=== PATIENT | female | born 1955 | race Caucasian/White ===

== ENCOUNTER 2020-01-25 15:05 | Outpatient (CLI) | payer MEDICARE, MEDICAID, SELFPAY ==
--- NOTE | ~2020-01-25 | XR_ITS ---
EXAMINATION: XR lumbar spine 2-3V EXAM DATE: 01/25/2020 15:40 INDICATION: Right-sided low back pain. TECHNIQUE: Lumber spine frontal, lateral, lateral L5-S1 projections for interpretation. There is no prior study for comparison. FINDINGS: There is moderate loss of the L5-S1 disc height, likely superimposed on congenitally narro wed disc. Otherwise mild lumbar disc disease. There is mild to moderate lumbar facet arthropathy. Minimal lumbar levocurvature. There are cholecystectomy clips. Sacrum, sacroiliac joints, sacral arcu ate lines are intact. There is mild abdominal aortic arteriosclerotic disease. IMPRESSION: 1. Mild to moderate lumbar spondylosis. Reviewed, dictated and finalized at location A.
--- NOTE | ~2020-01-25 | XR_ITS ---
EXAMINATION: XR_CERV2-3V_CR EXAM DATE: 01/25/2020 15:40 INDICATION: Chronic generalized neck pain. TECHNIQUE: Cervical spine frontal, lateral, submental vertex, and open-mouth odontoid projections. There are no prior studies for comparison. FINDINGS: There is moderate disc disease at C5-6 and 6-7, mild to moderate at C7-T1. At least modera te uncovertebral joint arthropathy at C5-6 and 6-7. There is moderate cervical facet arthropathy with left-sided predominant suspected. The odontoid process is intact. The lateral masses of C1 line up with C2. Prevertebral soft tissue and pre-dens space are within normal limits. Apices are clear. IMPRESSION: Moderate lower cervical spondylosis. Reviewed, dictated and finalized at location A.
== END 2020-01-25 15:06 | disposition home or self-care (01) ==
LOC: CHSIMG 15:09
PROVIDERS: PCP Internal Medicine; Visit Provider Internal Medicine
DX: M54.9 Dorsalgia, unspecified (principal); M54.2 Cervicalgia; M47.812 Spondylosis without myelopathy or radiculopathy, cervical region; M47.816 Spondylosis without myelopathy or radiculopathy, lumbar region
CPT/HCPCS: 72040; 72100

== ENCOUNTER 2020-05-05 08:28 | Outpatient (CLI) | payer MEDICARE, MEDICAID, SELFPAY ==
--- NOTE | ~2020-05-05 | DEXA_ITS ---
BMD(1) Young-Adult(2,7) Age-Matched(3) Region (g/cm2) T-score Z-score WHO Classification Neck Left 0.944 -0.7 0.4 Normal Right 0.928 -0.8 0.3 Normal Mean 0.936 -0.7 0.3 Normal Difference 0.016 0.1 0.1 - Total Left 1.082 0.6 1.3 Normal Right 1.037 0.2 1.0 Normal Mean 1.060 0.4 1.2 Normal Difference 0.045 0.4 0.4 - Hip [place] Length Comparison (mm) (Right = 98.3 mm) (Mean = 103.7 mm) (Left = 99.5 mm) Trend: Total Mean Change vs Change vs Measured Age BMD(1) Baseline Previous Date (years) (g/cm2) (%) (%) 05/05/2020 [age] 1.060 baseline - 1 - Statistically 68% of repeat scans fall within 1SD (+- 0.010 g/cm2 for DualFemur Total) 2 - [place] (Combined NHANES (ages 20-30) / Urlist (ages 20-40)) Femur Reference Population (v112) 3 - Matched for Age, Weight (females 25-100 kg), Ethnic 7 - DualFemur Total T-score difference is 0.4. Asymmetry is None. 11 - World Health Organization - Definition of Osteoporosis and Osteopenia for Women: Normal = T-score at or above -1.0 SD; Osteopenia = T-score between -1.0 and -2.5 SD; Osteoporosis = T-score at or below -2.5 SD; (WHO definitions only apply when a young healthy Women reference database is used to determine T-scores.) Printed: 05/05/2020 9:12:35 AM (13.60); Filename: [id number]; Right Femur; 22.5:%Fat=38.4%; Neck Angle (deg)= 69; Scan Mode: Standard 37.0 uGy; Left Femur; 21.6:%Fat=39.2%; Neck Angle (deg)= 69; Scan Mode: Standard 37.0 uGy [employer] [id number] Dear Sonam Daniels, Your patient Elsa Duong completed a BMD test on 05/05/2020 using the [employer] DXA System (analysis version: 13.60) manufactured by [employer]. The following summarizes the results of our evaluation. PATIENT BIOGRAPHICAL: Name: Elsa Duong Date: 1955 Height: 62.0 in. Gender: Female Exam Date: 05/05/2020 Weight: 194.0 lbs. Indications: Back Pain, Family Hist.(Parent hip fracture), Hip Pain, Hysterectomy, Ovarectomy (Unilat), Family Hist. (Parent hip fracture) Fractures: Treatments: Calcium, Multivitamin, Vitamin D ASSESSMENT: The BMD measured at Femur Neck Right is 0.928 g/cm2 with a T-score of -0.8. Bone density is up to 10% below young normal. This patient is considered normal according to World Health Organization (WHO) criteria. Fracture risk is low. Site Region Measured Measured WHO Young Adult Young Adult BMD Date Age Classification T-score AM Z-score DualFemur Neck Left 05/05/2020 66.9 Normal -0.7 0.4 0.944 g/cm2 DualFemur Neck Right 05/05/2020 66.9 Normal -0.8 0.3 0.928 g/cm2 DualFemur Total Mean 05/05/2020 66.9 Normal 0.4 1.2 1.060 g/cm2 World Health Organization (WHO) criteria for post-menopausal, Women: Normal: T-score at or above -1 SD Osteopenia: T-score between -1 and -2.5 SD Osteoporosis: T-score at or below -2.5 SD RECOMMENDATIONS: All patients should ensure an adequate intake of dietary calcium (1200 mg/d)
--- NOTE | ~2020-05-05 | US_ITS ---
EXAMINATION: US thyroid EXAM DATE: 05/05/2020 09:21 INDICATION: Goiter. TECHNIQUE: Multiple grayscale and Doppler images of the thyroid were obtained (by a technologist who performed the scan) and subsequently reviewed. Individual nodules and recommendations may be reporte d in accordance with TI-RADS system as designated by the 2017 ACR White Paper TI-RADS committee. The re is no prior study for comparison. FINDINGS: Right thyroid lobe measures 3.9 x 1.4 x 1.1 cm, the left measuring 3.6 x 1.4 x 1.1 cm. There is homog eneous thyroid echogenicity with several subcentimeter thyroid nodules, largest in the right thyroid lobe measuring 8 x 7 x 5 millimeters, solid (2 points), hyperechoic (1 point), wider than tall, gabriele h margin, without echogenic foci, category TR3 for this nodule. IMPRESSION: Small thyroid nodules not likely clinically significant. Return to clinical follow-up. Reviewed, dictated and finalized at location A.
[2020-05-05 09:21] LABS: Creatinine Urine 88.25 mg/dL (40-278); MALB Creatinine Ratio 14.7 mg/g (0-30); Microalbumin Urine Random < 13.0 mg/L
[2020-05-05 09:45] LABS: Anion Gap 6 mmol/L (8-16); Blood Urea Nitrogen 13 mg/dL (7-18); Calcium 8.9 mg/dL (8.5-10.1); Carbon Dioxide 30 mmol/L (21-32); Chloride 106 mmol/L (98-108); Cholesterol 176 mg/dL (0-200); Estimated Glomerular Filt Rate > 60; Glucose 127 mg/dL (70-99); HDL Direct 46 mg/dL (40-60); LDL Cholesterol Calculated 111 mg/dL (<130); Osmolality Calculated 296 mOsm/kg (285-295); Potassium 4.1 mmol/L (3.5-5.1); Sodium 142 mmol/L (136-145); Triglycerides 97 mg/dL (0-150)
== END 2020-05-05 08:29 | disposition home or self-care (01) ==
LOC: CHSIMG 08:30
PROVIDERS: PCP Internal Medicine; Visit Provider Internal Medicine Endocrinology, Diabetes & Metabolism
DX: E11.9 Type 2 diabetes mellitus without complications (principal); Z78.0 Asymptomatic menopausal state; E04.9 Nontoxic goiter, unspecified
CPT/HCPCS: 36415; 76536; 77080; 80048; 80061; 82043

== ENCOUNTER 2020-06-30 10:52 | Outpatient (CLI) | payer MEDICARE, SELFPAY ==
--- NOTE | ~2020-06-30 | XR_ITS ---
EXAMINATION: XR chest 2V EXAM DATE: 06/30/2020 11:23 INDICATION: URI; fatigue; dyspnea, cough, drainage. TECHNIQUE: Frontal and lateral projections of the chest obtained and reviewed. Comparison is made to prior examination from 10/07/2017. FINDINGS: The lungs are clear. There are no pleural effusions. The cardiomediastinal silhouette is within normal limits. There is no pneumothorax suspected. The bones and soft tissues are unremarkab le. There are cholecystectomy clips. IMPRESSION: No acute cardiopulmonary findings. Reviewed, dictated and finalized at location B. [employer]
[2020-06-30 11:15] LABS: Basophils Absolute Auto 0.07 K/mm3 (0.00-0.10); Basophils Percent Auto 0.9 % (0.0-1.0); Eosinophils Absolute Auto 0.28 K/mm3 (0.02-0.50); Eosinophils Percent Auto 3.7 % (1.0-6.0); Hematocrit 44.6 % (35.0-42.0); Hemoglobin 15.1 g/dL (11.7-13.8); Immature Granulocyte Absolute 0.03 K/mm3 (0.00-0.00); Immature Granulocyte Percent A 0.4 % (0.0-0.0); Lymphocytes Absolute Auto 2.14 K/mm3 (1.10-4.50); Lymphocytes Percent Auto 28.6 % (18.0-42.0); Mean Corpuscular HGB Conc 33.9 g/dL (32.0-36.0); Mean Corpuscular Hemoglobin 30.5 pg (27.0-31.0); Mean Corpuscular Volume 90.1 fL (78.0-102.0); Mean Platelet Volume 9.9 fl (9.2-11.8); Monocytes Absolute Auto 0.66 K/mm3 (0.10-0.90); Monocytes Percent Auto 8.8 % (2.0-11.0); Neutrophils Absolute Auto 4.3 K/mm3 (1.7-7.2); Neutrophils Percent Auto 57.6 % (50.0-70.0); Platelet Count Result 324 K/mm3 (150-420); Red Blood Count 4.95 M/mm3 (4.20-5.40); Red Cell Distribution Width 12.3 % (11.6-14.4); White Blood Count 7.5 K/mm3 (4.8-10.8)
[2020-06-30 11:37] LABS: BNP 24 pg/mL (0-100)
[2020-06-30 11:52] LABS: Alanine Aminotransferase 19 U/L (14-59); Albumin Level 3.3 g/dL (3.4-5.0); Alkaline Phosphatase 78 U/L (46-116); Anion Gap 10 mmol/L (8-16); Aspartate Amino Transferase 20 U/L (15-37); Bilirubin,Total 0.5 mg/dL (0.00-1.00); Blood Urea Nitrogen 13 mg/dL (7-18); Carbon Dioxide 29 mmol/L (21-32); Chloride 103 mmol/L (98-108); Creatine Kinase 24 U/L (26-192); Estimated Glomerular Filt Rate > 60; Glucose 129 mg/dL (70-99); Osmolality Calculated 296 mOsm/kg (285-295); Potassium 3.5 mmol/L (3.5-5.1); Sodium 142 mmol/L (136-145); Thyroid Stimulating Hormone 1.39 uIU/mL (0.36-3.74); Total Protein 7.4 g/dL (6.4-8.2)
[2020-06-30 11:53] LABS: Creatine Kinase MB < 0.50 ng/mL (0.00-5.00); Troponin I < 0.02 ng/mL (0.00-0.056)
[2020-06-30 14:06] LABS: Hemoglobin A1C 8.4 % (<5.7)
[2020-07-01 18:05] LABS: SARS-CoV-2 RNA PCR Negative
== END 2020-06-30 10:53 | disposition home or self-care (01) ==
LOC: CHSLAB 10:55
PROVIDERS: PCP Internal Medicine; Visit Provider Internal Medicine
DX: J06.9 Acute upper respiratory infection, unspecified (principal); R53.83 Other fatigue; R06.00 Dyspnea, unspecified; Z20.828 Contact with and (suspected) exposure to other viral communicable diseases; R73.9 Hyperglycemia, unspecified
CPT/HCPCS: 36415; 71046; 80053; 82550; 82553; 83036; 83880; 84443; 84484; 85025; 87635; C9803; U0003

== ENCOUNTER 2020-09-18 00:31 | Outpatient (CLI) | payer MEDICARE, MEDICAID, SELFPAY ==
[2020-09-18 18:26] LABS: SARS-CoV-2 RNA PCR Negative
== END 2020-09-18 00:32 | disposition home or self-care (01) ==
LOC: ANHCOVIDDT 00:31
PROVIDERS: PCP Internal Medicine; Visit Provider Internal Medicine Gastroenterology
DX: Z01.812 Encounter for preprocedural laboratory examination (principal); Z20.822 Contact with and (suspected) exposure to COVID-19
CPT/HCPCS: C9803; U0003; U0005

== ENCOUNTER 2020-09-21 01:13 | Day surgery (SDC) | payer MEDICARE, MEDICAID, SELFPAY ==
[2020-09-05 15:57] VITALS: BMI 33.8
[2020-09-21 07:14] LABS: Glucose Point of Care 166 (65-105)
[2020-09-21 07:19] VITALS: BP 150/71; PULSE 81; RESP 20; TEMP 36.6; O2SAT 99; BMI 33.7
[2020-09-21] MEDS: LACTATED RINGERS 1,000 ML 150 ML IV CONT (07:33)
--- NOTE | 2020-09-21 08:09 | WPDGICN ---
GI Consult Note Consult date/time: 09/21/20 08:09 HPI: Reason for visit is colonoscopy. Very pleasant lady seen in consultation request the primary physician. Impression: Screening and surveillance colonoscopy. Patient's history colon polyps. GERD well controlled on medication. HTN. HLD. Diabetes mellitus. Neuropathy. Anxiety/depression. Heart or hearing. Cervical cancer. Recommendation: Colonoscopy. History: Very pleasant lady's here for screening and surveillance colonoscopy. She has a history of colon polyps. She has a history of GERD well controlled on medication. She does have some complaints of right upper quadrant pain usually exacerbated by movement. It has been constant. GI review systems otherwise unremarkable. Physical examination: General: very pleasant patient in no acute distress. HEENT: Head was normocephalic sclerae is clear mouth without masses neck was supple. Heart: Rate rhythm regular without S3 or S4. Lungs: CTA. Abdomen: Soft with no guarding or rigidity. Bowel sounds were active. Neurologic: Cranial nerves 2 through 12 intact. No focal defects. No clonus. Musculoskeletal system: Revealed no joint tenderness or swelling no muscle atrophy. Extremities: Reveal no significant edema. Skin: Warm and dry with normal turgor. Mental status: intact. Patient is alert and oriented. Review of Systems Review of Systems: All systems reviewed & are unremarkable except as noted in HPI and below PMFSH Past Medical History Medical History (Updated 09/21/20 @ 08:09 by Eleazar Smith DO) Adenomatous colon polyp Anxiety and depression Asthma Cervical cancer Diabetes mellitus GERD (gastroesophageal reflux disease) HLD (hyperlipidemia) [place] (hard of hearing) HTN (hypertension) Neuropathy Obesity Osteoarthritis Surgical History Surgical History H/O: hysterectomy History of sleeve gastrectomy Hx of cardiac cath Knee joint replacement status Family History Family History Sibling Family history of hepatitis Mother Family history of diabetes mellitus in first degree relative Family history of heart disease in male family member before age 55 Father Family history of heart disease in male family member before age 55 Other Cerebrovascular accident Depression Diabetes mellitus Family history of Alzheimer's disease Family history of arthritis Family history of atrial fibrillation Family history of cardiovascular disease Family history of genitourinary disease Family history of glaucoma Family history of hearing loss Family history of liver disease Family history of lung disease Family history of malignant neoplasm Family history of mental disorder Family history of osteoporosis Family history of thyroid disease Family history of type 2 diabetes mellitus Hypertension Social History Social History Smoking status: Never smoker Alcohol intake: never Substance use: never Substance use type: does not use Living arrangements: alone Spiritual care concerns: No Meds Home Medications and Allergies Home Medications Medication Instructions Recorded Confirmed Type blood sugar diagnostic #200 ea 09/13/20 09/21/20 Rx cyclobenzaprine 10 mg tablet 10 mg PO TID PRN 09/13/20 09/21/20 History dulaglutide 1.5 mg/0.5 mL 1.5 mg SUBCUT WEEKLY 90 Days #6.5 09/13/20 09/21/20 Rx subcutaneous pen injector ml duloxetine 60 mg capsule,delayed 60 mg PO DAILY #1 cap 09/13/20 09/21/20 Rx release flash glucose sensor #6 ea 09/13/20 09/21/20 Rx hydrochlorothiazide 25 mg tablet 25 mg PO DAILY #1 tablet 09/13/20 09/21/20 Rx insulin glargine 100 unit/mL (3 30 unit SUB-Q DAILY 90 Days #27 ml 09/13/20 09/21/20 Rx mL) subcutaneous pen lancets #200 ea 09/13/2009/21
--- NOTE | 2020-09-21 08:22 | WPDANESEPPF ---
Anes - Initial Pre Proc Eval Procedure: Operation Date: 09/21/20 08:30 Proposed Procedures p Screening Colonoscopy - Eleazar Smith DO Date/Time: 09/21/20 08:22 Surgeon: Eleazar Smith DO Pre Op Diagnosis: Neoplasm Screening Patient Data Age: 65 Gender: F Height: 5 ft 2 in Weight: 83.7 kg Last Vital Signs Temp 97.8 F 09/21/20 07:19 Pulse 81 09/21/20 07:19 Resp 20 09/21/20 07:19 BP 150/71 H 09/21/20 07:19 Pulse Ox 99 09/21/20 07:19 Allergies Allergy/AdvReac Type Severity Reaction Status Date / Time amoxicillin Allergy Mild Rash Verified 09/21/20 07:15 liraglutide Allergy Unknown Rash Verified 09/21/20 07:15 ampicillin AdvReac Intermediate ITCHY RASH Verified 09/21/20 07:15 Home Medications Medication Instructions Recorded Confirmed Type blood sugar diagnostic #200 ea 09/13/20 09/21/20 Rx cyclobenzaprine 10 mg tablet 10 mg PO TID PRN 09/13/20 09/21/20 History dulaglutide 1.5 mg/0.5 mL 1.5 mg SUBCUT WEEKLY 90 Days #6.5 09/13/20 09/21/20 Rx subcutaneous pen injector ml duloxetine 60 mg capsule,delayed 60 mg PO DAILY #1 cap 09/13/20 09/21/20 Rx release flash glucose sensor #6 ea 09/13/20 09/21/20 Rx hydrochlorothiazide 25 mg tablet 25 mg PO DAILY #1 tablet 09/13/20 09/21/20 Rx insulin glargine 100 unit/mL (3 30 unit SUB-Q DAILY 90 Days #27 ml 09/13/20 09/21/20 Rx mL) subcutaneous pen lancets #200 ea 09/13/20 09/21/20 Rx naproxen 500 mg tablet 500 mg PO BID PRN 09/13/20 09/21/20 History omeprazole 20 mg capsule,delayed 20 mg PO DAILY #1 cap 09/13/20 09/21/20 Rx release pen needle, diabetic 32 gauge x #100 each 09/13/20 09/21/20 Rx /32 Laboratory Tests 09/21/20 07:09 POC Capillary Glucose 166 mg/dl H mg/dl (65-105) Patient hx anesthesia problems: none Family hx anesthesia problems: none [facility] Past Medical History Medical History (Updated 09/21/20 @ 08:09 by Eleazar Smith DO) Adenomatous colon polyp Anxiety and depression Asthma Cervical cancer Diabetes mellitus GERD (gastroesophageal reflux disease) HLD (hyperlipidemia) [place] (hard of hearing) HTN (hypertension) Neuropathy Obesity Osteoarthritis Surgical History Surgical History H/O: hysterectomy History of sleeve gastrectomy Hx of cardiac cath Knee joint replacement status Family History Family History Sibling Family history of hepatitis Mother Family history of diabetes mellitus in first degree relative Family history of heart disease in male family member before age 55 Father Family history of heart disease in male family member before age 55 Other Cerebrovascular accident Depression Diabetes mellitus Family history of Alzheimer's disease Family history of arthritis Family history of atrial fibrillation Family history of cardiovascular disease Family history of genitourinary disease Family history of glaucoma Family history of hearing loss Family history of liver disease Family history of lung disease Family history of malignant neoplasm Family history of mental disorder Family history of osteoporosis Family history of thyroid disease Family history of type 2 diabetes mellitus Hypertension Social History Social History Smoking status: Never smoker Alcohol intake: never Substance use: never Substance use type: does not use Living arrangements: alone Spiritual care concerns: No Anes - Eval Final PreProcedure Day of Procedure 09/21/20 08:22 Patient weight: normal Heart: regular rate and rhythm Lungs: clear to auscultation Airway: Mallampati scale class II Neurological: alert and oriented Last oral intake: >/= 8 hours ASA classification: III Emergent: no Anesthetic plan: proceed Anesthesia type and monitoring: general GIVS and standard monitoring Informed Consen
[2020-09-21 09:39] VITALS: BP 114/65; PULSE 64; RESP 17; O2SAT 100
[2020-09-21 09:47] LABS: Glucose Point of Care 126 (65-105)
[2020-09-21 09:49] VITALS: BP 141/62; PULSE 60; RESP 16; O2SAT 100
[2020-09-21 09:59] VITALS: BP 146/63; PULSE 58; RESP 16; O2SAT 100
== END 2020-09-21 10:10 | disposition home or self-care (01) ==
PROVIDERS: PCP Internal Medicine; Visit Provider Internal Medicine Gastroenterology
PROC: 0DJD8ZZ Inspection of Lower Intestinal Tract, Via Natural or Artificial Opening Endoscopic (ICD-10-PCS; CPT 45378; principal; 2020-09-21 08:30)
DX: Z12.11 Encounter for screening for malignant neoplasm of colon (principal); D12.4 Benign neoplasm of descending colon; D12.5 Benign neoplasm of sigmoid colon; I10 Essential (primary) hypertension; E78.5 Hyperlipidemia, unspecified; E11.40 Type 2 diabetes mellitus with diabetic neuropathy, unspecified; F41.8 Other specified anxiety disorders; Z85.41 Personal history of malignant neoplasm of cervix uteri; Z98.84 Bariatric surgery status; E66.9 Obesity, unspecified; Z68.33 Body mass index [BMI] 33.0-33.9, adult; Z79.4 Long term (current) use of insulin
CPT/HCPCS: 45385; 88305; C9803; J2001; J2704; J7120; U0003; U0005

== ENCOUNTER 2021-03-12 10:07 | Outpatient (CLI) | payer MEDICARE, SELFPAY ==
[2021-03-12 10:22] LABS: Basophils Absolute Auto 0.08 K/mm3 (0.00-0.10); Basophils Percent Auto 0.9 % (0.0-1.0); Eosinophils Absolute Auto 0.26 K/mm3 (0.02-0.50); Eosinophils Percent Auto 3.1 % (1.0-6.0); Hematocrit 45.1 % (35.0-42.0); Hemoglobin 15.5 g/dL (11.7-13.8); Immature Granulocyte Absolute 0.02 K/mm3 (0.00-0.00); Immature Granulocyte Percent A 0.2 % (0.0-0.0); Lymphocytes Percent Auto 34.3 % (18.0-42.0); Mean Corpuscular HGB Conc 34.4 g/dL (32.0-36.0); Mean Corpuscular Volume 90.2 fL (78.0-102.0); Mean Platelet Volume 9.9 fl (9.2-11.8); Monocytes Absolute Auto 0.63 K/mm3 (0.10-0.90); Monocytes Percent Auto 7.5 % (2.0-11.0); Neutrophils Absolute Auto 4.6 K/mm3 (1.7-7.2); Platelet Count Result 348 K/mm3 (150-420); Red Cell Distribution Width 12.2 % (11.6-14.4); White Blood Count 8.5 K/mm3 (4.8-10.8)
[2021-03-12 10:52] LABS: Alanine Aminotransferase 21 U/L (14-59); Albumin Level 3.4 g/dL (3.4-5.0); Alkaline Phosphatase 77 U/L (46-116); Anion Gap 11 mmol/L (8-16); Aspartate Amino Transferase 15 U/L (15-37); Bilirubin,Total 0.5 mg/dL (0.00-1.00); Blood Urea Nitrogen 12 mg/dL (7-18); Calcium 9.1 mg/dL (8.5-10.1); Carbon Dioxide 27 mmol/L (21-32); Chloride 106 mmol/L (98-108); Estimated Glomerular Filt Rate > 60; Glucose 125 mg/dL (70-99); Magnesium 1.8 mg/dL (1.8-2.4); Osmolality Calculated 298 mOsm/kg (285-295); Potassium 3.8 mmol/L (3.5-5.1); Sodium 144 mmol/L (136-145); Total Protein 6.8 g/dL (6.4-8.2)
== END 2021-03-12 10:08 | disposition home or self-care (01) ==
LOC: CHSLAB 10:09
PROVIDERS: PCP Internal Medicine; Visit Provider Internal Medicine
DX: R01.1 Cardiac murmur, unspecified (principal)
CPT/HCPCS: 36415; 80053; 83735; 85025

== ENCOUNTER 2021-03-29 14:47 | Outpatient (CLI) | payer MEDICARE, MEDICAID, SELFPAY ==
--- NOTE | 2021-03-29 15:30 | ECHO_ITS ---
Patient Info Name: Elsa Duong Age: 65 years : 1955 Gender: Female Ht: 62 in Wt: 182 lbs BSA: 1.94 m2 HR: 76 bpm BP: 140 / 66 mmHg Heart Rhythm: Sinus Rhythm Exam Date: 03/29/2021 2:42 PM Exam Location: [facility] Patient Status: Outpatient Admit Date: 03/29/2021 Staff Ordering Physician: Dwayne Núñez MD Basket Patcher: Umu Ye RDCS Attending Provider: Dwayne Núñez MD Exam Type: CA echo doppler color flow Study Info Indications - systolic murmur Complete two-dimensional, color flow and Doppler transthoracic echocardiogram is performed. Summary 1. Complete two-dimensional, color flow and Doppler transthoracic echocardiogram is performed. 2. Left ventricular chamber dimension is normal. 3. Left ventricular systolic function is normal, estimated at 60-65%. 4. There is mildly increased left ventricular wall thickness. 5. The left ventricular diastolic function is grade I diastolic dysfunction. 6. E/e' 10 is mildly elevated. 7. There is moderate aortic valve sclerosis. 8. There is mild to moderate aortic valve stenosis with a peak velocity of 267 cm/s, mean gradient of 11 mmHg, and aortic valve area of 1.3 cm2. Left Ventricle E/e' 10 is mildly elevated. Left ventricular chamber dimension is normal. Left ventricular systolic function is normal, estimated at 60-65%. There is mildly increased left ventricular wall thickness. The left ventricular diastolic function is grade I diastolic dysfunction. Right Ventricle Right ventricular chamber dimension is normal. Right ventricular systolic function is normal. Left Atria Left atrial chamber dimension is normal. Right Atria Right atrial chamber dimension is normal. Aortic Valve The aortic valve is trileaflet. There is moderate aortic valve sclerosis. There is mild to moderate aortic valve stenosis with a peak velocity of 267 cm/s, mean gradient of 11 mmHg, and aortic valve area of 1.3 cm2. There is no aortic valve regurgitation. Pulmonic Valve There is no pulmonic regurgitation. Mitral Valve There is no mitral valve stenosis. There is no mitral valve regurgitation. Tricuspid Valve There is no tricuspid valve regurgitation. Pericardium/Pleural There is no pericardial effusion. Inferior Vena Cava Normal inferior vena cava with >50% collapse upon inspiration consistent with normal right atrial pressure, 5 mmHg. Aorta The aortic root size at the sinus of Valsalva is normal. Left Ventricular Outflow Tract Name Value Normal LVOT 2D LVOT Diameter 1.8 cm LVOT Doppler LVOT Peak Velocity 119 cm/s LVOT Peak Gradient 5 mmHg LVOT Mean Gradient 3 mmHg LVOT VTI 28 cm LVOT VTI/AV VTI Ratio 0.5 LVOT Stroke Volume 69 ml Pulmonic Valve Name Value Normal RVOT Doppler
== END 2021-03-29 14:48 | disposition home or self-care (01) ==
LOC: CHSIMG 14:49
PROVIDERS: PCP Internal Medicine; Visit Provider Internal Medicine
DX: R01.1 Cardiac murmur, unspecified (principal)
CPT/HCPCS: 93306

== ENCOUNTER 2021-05-14 15:59 | Outpatient (CLI) | payer MEDICARE, MEDICAID, SELFPAY ==
--- NOTE | ~2021-05-14 | XR_ITS ---
EXAMINATION: XR wrist LT min 3V EXAM DATE: 05/14/2021 16:29 INDICATION: Posterior LT wrist pain and swelling x3wks . TECHNIQUE: Left wrist frontal, frontal with ulnar deviation, oblique and lateral projections obtained and reviewed. There is no prior study for comparison. FINDINGS: Left wrist scapholunate joint space is maintained. There are no acute fractures or dislocat ions identified. There is no subcutaneous gas. The soft tissue is unremarkable. There are no radi opaque foreign bodies. There are no bony erosions identified. IMPRESSION: 1. Unremarkable left wrist exam. Reviewed, dictated and finalized at location B.
[2021-05-14 16:20] LABS: Basophils Absolute Auto 0.08 K/mm3 (0.00-0.10); Basophils Percent Auto 0.8 % (0.0-1.0); Eosinophils Percent Auto 2.9 % (1.0-6.0); Hematocrit 43.3 % (35.0-42.0); Hemoglobin 14.6 g/dL (11.7-13.8); Immature Granulocyte Absolute 0.03 K/mm3 (0.00-0.00); Immature Granulocyte Percent A 0.3 % (0.0-0.0); Lymphocytes Absolute Auto 2.84 K/mm3 (1.10-4.50); Lymphocytes Percent Auto 27.7 % (18.0-42.0); Mean Corpuscular HGB Conc 33.7 g/dL (32.0-36.0); Mean Corpuscular Hemoglobin 31.1 pg (27.0-31.0); Mean Corpuscular Volume 92.3 fL (78.0-102.0); Mean Platelet Volume 9.7 fl (9.2-11.8); Monocytes Absolute Auto 0.82 K/mm3 (0.10-0.90); Neutrophils Absolute Auto 6.2 K/mm3 (1.7-7.2); Neutrophils Percent Auto 60.3 % (50.0-70.0); Platelet Count Result 317 K/mm3 (150-420); Red Blood Count 4.69 M/mm3 (4.20-5.40); Red Cell Distribution Width 11.9 % (11.6-14.4); White Blood Count 10.3 K/mm3 (4.8-10.8)
[2021-05-14 17:01] LABS: Alanine Aminotransferase 21 U/L (14-59); Albumin Level 3.1 g/dL (3.4-5.0); Alkaline Phosphatase 88 U/L (46-116); Anion Gap 8 mmol/L (8-16); Aspartate Amino Transferase 11 U/L (15-37); Bilirubin,Total 0.4 mg/dL (0.00-1.00); Blood Urea Nitrogen 15 mg/dL (7-18); Calcium 9.4 mg/dL (8.5-10.1); Carbon Dioxide 32 mmol/L (21-32); Chloride 103 mmol/L (98-108); Estimated Glomerular Filt Rate > 60; Glucose 250 mg/dL (70-99); Osmolality Calculated 304 mOsm/kg (285-295); Sodium 143 mmol/L (136-145); Total Protein 6.4 g/dL (6.4-8.2); Uric Acid 4.7 mg/dL (2.6-6.0)
[2021-05-21 10:26] LABS: Anti Cyclic Citrullinated Pept <16 Units (<20)
== END 2021-05-14 16:00 | disposition home or self-care (01) ==
LOC: CHSIMG 16:02
PROVIDERS: PCP Internal Medicine; Visit Provider Nurse Practitioner Family
DX: M25.532 Pain in left wrist (principal)
CPT/HCPCS: 36415; 73110; 80053; 84550; 85025; 86038; 86140; 86200

== ENCOUNTER 2022-01-08 11:20 | Outpatient (CLI) | payer MEDICARE, MEDICAID, SELFPAY ==
[2022-01-08 11:37] LABS: Basophils Absolute Auto 0.07 K/mm3 (0.00-0.10); Basophils Percent Auto 0.9 % (0.0-1.0); Eosinophils Absolute Auto 0.31 K/mm3 (0.02-0.50); Hematocrit 44.1 % (35.0-42.0); Hemoglobin 15.3 g/dL (11.7-13.8); Immature Granulocyte Absolute 0.03 K/mm3 (0.00-0.00); Immature Granulocyte Percent A 0.4 % (0.0-0.0); Lymphocytes Absolute Auto 2.54 K/mm3 (1.10-4.50); Lymphocytes Percent Auto 32.6 % (18.0-42.0); Mean Corpuscular HGB Conc 34.7 g/dL (32.0-36.0); Mean Corpuscular Volume 89.5 fL (78.0-102.0); Mean Platelet Volume 9.5 fl (9.2-11.8); Monocytes Absolute Auto 0.62 K/mm3 (0.10-0.90); Monocytes Percent Auto 7.9 % (2.0-11.0); Neutrophils Absolute Auto 4.2 K/mm3 (1.7-7.2); Neutrophils Percent Auto 54.2 % (50.0-70.0); Platelet Count Result 300 K/mm3 (150-420); Red Blood Count 4.93 M/mm3 (4.20-5.40); Red Cell Distribution Width 12.2 % (11.6-14.4); White Blood Count 7.8 K/mm3 (4.8-10.8)
[2022-01-08 11:57] LABS: Creatinine Urine 200.33 mg/dL (40-278); MALB Creatinine Ratio 7.8 mg/g (0-30); Microalbumin Urine Random 15.7 mg/L
[2022-01-08 12:23] LABS: Alanine Aminotransferase 18 U/L (14-59); Albumin Level 3.3 g/dL (3.4-5.0); Alkaline Phosphatase 76 U/L (46-116); Anion Gap 6 mmol/L (8-16); Aspartate Amino Transferase 21 U/L (15-37); Bilirubin,Total 0.5 mg/dL (0.00-1.00); Blood Urea Nitrogen 20 mg/dL (7-18); Carbon Dioxide 29 mmol/L (21-32); Chloride 104 mmol/L (98-108); Cholesterol 180 mg/dL (0-200); Estimated Glomerular Filt Rate > 60; Free T4 Free Thyroxine 1.13 ng/dL (0.76-1.46); HDL Direct 52 mg/dL (40-60); LDL Cholesterol Calculated 109 mg/dL (<130); Potassium 3.3 mmol/L (3.5-5.1); Sodium 139 mmol/L (136-145); Thyroid Stimulating Hormone 1.81 uIU/mL (0.36-3.74); Total Protein 7.1 g/dL (6.4-8.2); Triglycerides 93 mg/dL (0-150)
[2022-01-08 12:29] LABS: Glucose 110 mg/dL (70-99); Osmolality Calculated 291 mOsm/kg (285-295)
[2022-01-08 12:40] LABS: Vitamin B12 > 2000 pg/mL (193-986)
[2022-01-11 13:56] LABS: Vitamin D 25 Hydroxy 58 ng/mL (30-100)
== END 2022-01-08 11:21 | disposition home or self-care (01) ==
LOC: CHSLAB 11:24
PROVIDERS: PCP Internal Medicine; Visit Provider Nurse Practitioner Family
DX: E78.5 Hyperlipidemia, unspecified (principal); E11.9 Type 2 diabetes mellitus without complications; I10 Essential (primary) hypertension; G62.9 Polyneuropathy, unspecified; Z79.899 Other long term (current) drug therapy
CPT/HCPCS: 36415; 80053; 80061; 82043; 82306; 82607; 84439; 84443; 85025

== ENCOUNTER 2022-07-17 09:22 | Outpatient (CLI) | payer OTHER, SELFPAY ==
[2022-07-17 10:32] LABS: Creatinine Urine 263.33 mg/dL (40-278); MALB Creatinine Ratio 10.5 mg/g (0-30); Microalbumin Urine Random 27.7 mg/L
[2022-07-17 10:47] LABS: Anion Gap 9 mmol/L (8-16); Blood Urea Nitrogen 15 mg/dL (7-18); Calcium 9.1 mg/dL (8.5-10.1); Carbon Dioxide 30 mmol/L (21-32); Chloride 106 mmol/L (98-108); Cholesterol 183 mg/dL (0-200); Estimated Glomerular Filt Rate > 60; Glucose 96 mg/dL (70-99); HDL Direct 55 mg/dL (40-60); LDL Cholesterol Calculated 111 mg/dL (<130); Osmolality Calculated 300 mOsm/kg (285-295); Potassium 3.8 mmol/L (3.5-5.1); Sodium 145 mmol/L (136-145); Thyroid Stimulating Hormone 2.04 uIU/mL (0.36-3.74); Triglycerides 84 mg/dL (0-150)
== END 2022-07-17 09:23 | disposition home or self-care (01) ==
LOC: CHSLAB 09:28
PROVIDERS: PCP Internal Medicine; Visit Provider Internal Medicine Endocrinology, Diabetes & Metabolism
DX: E78.5 Hyperlipidemia, unspecified (principal); E11.65 Type 2 diabetes mellitus with hyperglycemia; Z79.4 Long term (current) use of insulin
CPT/HCPCS: 36415; 80048; 80061; 82043; 84443

== ENCOUNTER 2022-09-12 11:26 | Outpatient (CLI) | payer MEDICARE, MEDICAID, SELFPAY ==
[2022-09-12 12:15] LABS: Hemoglobin A1C 9.4 % (<5.7)
== END 2022-09-12 11:27 | disposition home or self-care (01) ==
LOC: CHSLAB 11:30
PROVIDERS: PCP Internal Medicine; Visit Provider Internal Medicine Endocrinology, Diabetes & Metabolism
DX: E11.65 Type 2 diabetes mellitus with hyperglycemia (principal); Z79.4 Long term (current) use of insulin
CPT/HCPCS: 36415; 83036

== ENCOUNTER 2022-12-20 11:28 | Outpatient (CLI) | payer MEDICARE, MEDICAID, SELFPAY ==
--- NOTE | ~2022-12-20 | XR_ITS ---
EXAMINATION: XR wrist LT min 3V DATE: 12/20/2022 11:47 INDICATION: Severe osteoarthritis, wrist pain TECHNIQUE: Posteroanterior, ulnar deviation, oblique, and lateral views of the left wrist were obtain ed. COMPARISON: 05/14/2020 FINDINGS: There is moderate osteoarthritis at the triscaphe and first carpometacarpal joints. No frac ture is identified. The soft tissues are unremarkable. IMPRESSION: 1. Osteoarthritis without acute osseous abnormality. Reviewed, dictated and finalized at location B.
== END 2022-12-20 11:29 | disposition home or self-care (01) ==
LOC: CHSIMG 11:31
PROVIDERS: PCP Internal Medicine; Visit Provider Plastic Surgery
DX: M19.032 Primary osteoarthritis, left wrist (principal)
CPT/HCPCS: 73110

== ENCOUNTER 2023-01-31 09:12 | Outpatient (CLI) | payer MEDICARE, MEDICAID, SELFPAY ==
--- NOTE | 2023-01-31 11:00 | NEURO_ITS ---
Impression: Patient reports a prior history of Carpal Tunnel release, now with bilateral hand pain and numbness. # Moderate left Carpal Tunnel Syndrome. # Mild right Carpal Tunnel Syndrome. # Evidence of left ulnar neuropathy. # Normal needle/EMG exam. # Clinical correlation recommended. Nerve Conduction Studies Anti Sensory Summary Table Stim Site NR Peak (ms) P-T Amp (?V) Site1 Site2 Delta-P (ms) Dist (cm) Keron (m/s) Left Median Anti Sensory (2-3nd Digit) Wrist 4.5 10.0 Wrist 2-3nd Digit 4.5 14.0 31 Wrist 4.6 29.8 Wrist 2-3nd Digit 4.5 14.0 31 Right Median Anti Sensory (2-3nd Digit) Wrist 4.5 16.9 Wrist 2-3nd Digit 4.5 14.0 31 Wrist 4.4 23.7 Wrist 2-3nd Digit 4.5 14.0 31 Left Radial Anti Sensory (Base 1st Digit) Wrist 1.7 37.4 Wrist Base 1st Digit 1.7 0.0 Right Radial Anti Sensory (Base 1st Digit) Wrist 2.4 18.0 Wrist Base 1st Digit 2.4 0.0 Left Ulnar Anti Sensory (5th Digit) Wrist 2.9 38.9 Wrist 5th Digit 2.9 14.0 48 Right Ulnar Anti Sensory (5th Digit) Wrist 2.0 10.6 Wrist 5th Digit 2.0 14.0 70 Motor Summary Table Stim Site NR Onset (ms) O-P Amp (mV) Site1 Site2 Delta-0 (ms) Dist (cm) Keron (m/s) Left Median Motor (Abd Poll Brev) Wrist 4.5 3.5 Elbow Wrist 4.4 20.0 45 Elbow 8.9 2.5 Right Median Motor (Abd Poll Brev) Wrist 4.3 4.5 Elbow Wrist 4.5 21.0 47 Elbow 8.8 4.1 Left Ulnar Motor (Abd Dig Minimi) Wrist 2.7 10.0 A Elbow Wrist 5.3 24.0 45 A Elbow 8.0 8.1 B Elbow Wrist 3.4 15.0 44 B Elbow 6.1 8.3 Right Ulnar Motor (Abd Dig Minimi) Wrist 2.8 9.0 A Elbow Wrist 4.8 25.0 52 A Elbow 7.6 8.2 B Elbow Wrist 2.7 15.0 56 B Elbow 5.5 8.9 F Wave Studies NR F-Lat (ms) L-R F-Lat (ms) Left Median (Mrkrs) (Abd Poll Brev) 28.15 0.42 Right Median (Mrkrs) (Abd Poll Brev) 27.73 0.42 Left Ulnar (Mrkrs) (Abd Dig Min) 27.92 0.33 Right Ulnar (Mrkrs) (Abd Dig Min) 28.25 0.33 EMG Side Muscle Nerve Root Ins Act Fibs Amp Dur Recrt Comment Right 1stDorInt Ulnar C8-T1 Nml Nml Nml Nml Nml Right Ext Indicis Radial (Post Int) C7-8 Nml Nml Nml Nml Nml Right Ext Digitorum Radial (Post Int) C7-8 Nml Nml Nml Nml Nml Right BrachioRad Radial C5-6 Nml Nml Nml Nml Nml Right PronatorTeres Median C6-7 Nml Nml Nml Nml Nml Right Abd Poll Brev Median C8-T1 Nml Nml Nml Nml Nml Left 1stDorInt Ulnar C8-T1 Nml Nml Nml Nml Nml Left Ext Indicis Radial (Post Int) C7-8 Nml Nml Nml Nml Nml Left Ext Digitorum Radial (Post Int) C7-8 Nml Nml Nml Nml Nml Left BrachioRad Radial C5-6 Nml Nml Nml Nml Nml Left PronatorTeres Median C6-7 Nml Nml Nml Nml Nml Left Abd Poll Brev Median C8-T1 Nml Nml Nml Nml Nml MTDD
== END 2023-01-31 09:13 | disposition home or self-care (01) ==
LOC: ANHNEURO 09:13
PROVIDERS: PCP Internal Medicine; Visit Provider Plastic Surgery
DX: R20.0 Anesthesia of skin (principal); G56.03 Carpal tunnel syndrome, bilateral upper limbs
CPT/HCPCS: 95886; 95911

== ENCOUNTER 2023-03-11 14:28 | Outpatient (CLI) | payer MEDICARE, MEDICAID, SELFPAY ==
[2023-03-11 14:51] LABS: Basophils Absolute Auto 0.04 K/mm3 (0.00-0.10); Basophils Percent Auto 0.5 % (0.0-1.0); Eosinophils Absolute Auto 0.37 K/mm3 (0.02-0.50); Eosinophils Percent Auto 5.1 % (1.0-6.0); Hematocrit 38.7 % (35.0-42.0); Hemoglobin 13.1 g/dL (11.7-13.8); Immature Granulocyte Absolute 0.03 K/mm3 (0.00-0.00); Immature Granulocyte Percent A 0.4 % (0.0-0.0); Lymphocytes Absolute Auto 2.26 K/mm3 (1.10-4.50); Lymphocytes Percent Auto 30.9 % (18.0-42.0); Mean Corpuscular HGB Conc 33.9 g/dL (32.0-36.0); Mean Corpuscular Hemoglobin 31.6 pg (27.0-31.0); Mean Corpuscular Volume 93.3 fL (78.0-102.0); Mean Platelet Volume 9.1 fl (9.2-11.8); Monocytes Absolute Auto 0.57 K/mm3 (0.10-0.90); Monocytes Percent Auto 7.8 % (2.0-11.0); Neutrophils Absolute Auto 4.1 K/mm3 (1.7-7.2); Neutrophils Percent Auto 55.3 % (50.0-70.0); Platelet Count Result 311 K/mm3 (150-420); Red Blood Count 4.15 M/mm3 (4.20-5.40); White Blood Count 7.3 K/mm3 (4.8-10.8)
[2023-03-11 14:52] LABS: Appearance Urine Clear (Clear); Bilirubin Urine Negative (Negative); Blood Urine Negative (Negative); Color Urine Yellow (Yellow); Glucose Urine UA 3+ (Negative); Ketones Urine Negative (Negative); Leukocyte Esterase Ur Negative (Negative); Nitrate Urine Negative (Negative); Protein Urine Negative (Negative); Specific Grav Ur <= 1.005 (1.010-1.020); Urobilinogen Urine 0.2 mg/dL (0.2-1.0)
[2023-03-11 14:59] LABS: Add Urine Microscopic? YES; RBC Urine None seen /hpf (0-2)
[2023-03-11 15:00] LABS: Bacteria Urine None seen /hpf; Squamous Epithelial Cell Urine Rare /hpf (Few); WBC Urine None seen /hpf (0-3)
[2023-03-11 15:34] LABS: Rheumatoid Factor Screen Negative (Negative)
[2023-03-11 15:40] LABS: Alanine Aminotransferase 20 U/L (14-59); Albumin Level 2.9 g/dL (3.4-5.0); Alkaline Phosphatase 94 U/L (46-116); Anion Gap 5 mmol/L (8-16); Aspartate Amino Transferase 12 U/L (15-37); Bilirubin,Total 0.2 mg/dL (0.00-1.00); Blood Urea Nitrogen 11 mg/dL (7-18); Calcium 8.4 mg/dL (8.5-10.1); Carbon Dioxide 31 mmol/L (21-32); Chloride 102 mmol/L (98-108); Estimated Glomerular Filt Rate > 60; Free T4 Free Thyroxine 1.04 ng/dL (0.76-1.46); Glucose 371 mg/dL (70-99); NT Pro B Type Natriuretic Pept 298 pg/mL (0-125); Osmolality Calculated 300 mOsm/kg (285-295); Potassium 3.9 mmol/L (3.5-5.1); Sodium 138 mmol/L (136-145); Thyroid Stimulating Hormone 1.44 uIU/mL (0.36-3.74); Total Protein 5.9 g/dL (6.4-8.2)
[2023-03-11 15:42] LABS: CRP < 0.5 mg/dL (0.0-0.9)
[2023-03-11 15:53] LABS: Erythrocyte Sedimentation Rate 44 mm/hr (0-20)
== END 2023-03-11 14:29 | disposition home or self-care (01) ==
LOC: CHSLAB 14:30
PROVIDERS: PCP Internal Medicine; Visit Provider Nurse Practitioner Family
DX: M79.89 Other specified soft tissue disorders (principal); R01.1 Cardiac murmur, unspecified; I50.9 Heart failure, unspecified; R82.90 Unspecified abnormal findings in urine
CPT/HCPCS: 36415; 80053; 81001; 83880; 84439; 84443; 85025; 85652; 86038; 86140; 86430; 87086

== ENCOUNTER 2023-04-02 01:34 | Day surgery (SDC) | payer MEDICARE, MEDICAID, SELFPAY ==
[2023-03-20 15:15] VITALS: BMI 33.4
--- NOTE | 2023-03-20 15:30 | PC.NURSE ---
Report to the Outpatient Waiting Room, entrance under the green pavilion located off [facility], at time ___0700____ on date ___04/02/23____. Planned Procedure Time: ___0900 . Time changes happen often and if your time is changed the preop area will call you the afternoon before. - You and your visitor will be asked to self-screen and do not enter if you have any COVID symptoms. - A mask is optional within the hospital at this time. Patients may have clear liquids (water, carbonated beverages, clear teas, apple juice) until 3 hours prior to surgery (0600 AM) with a maximum of 20 ounces. - No food from midnight until time of surgery - Infants may have breast milk until 4 hours before surgery, infant formula 6 hours prior to surgery. - Children will be allowed to drink immediately following surgery. If applicable, please bring a bottle or sippy cup to assist with drinking. Juice, water, soda, and popsicles are readily available. For infants on formula, please bring formula the day of surgery. Pacifiers are allowed. Take the following medications with a SIP of water the morning of surgery: _CYCLOBENZAPRINE & INHALER IF NEEDED__ DO NOT STOP ANY OF YOUR OTHER PRESCRIPTION MEDICATIONS PRIOR TO SURGERY ?EXCEPT THE FOLLOWING Medications to discontinue _NAPROXEN PER DR. GILBERT'S INSTRUCTIONS__ Medications to discontinue per ANESTHESIA - _MULTIVITAMIN 3 DAYS PRIOR TO SURGERY, Date to take last dose 03/29/23_ Please no make-up, nail kinyarwanda, hairspray, perfume, deodorant, or body powder the day of surgery. No jewelry (including any body piercings) or valuables the day of surgery, leave them at home. Please take a shower or bath the night before, or the morning of, surgery with an antibacterial soap. Wear comfortable, loose fitting clothing. Children are encouraged to wear pajamas. - Jewelry must be removed prior to entering the operating room. Rings and piercings that are not removed may be cut off. - The hospital will not accept responsibility for valuables. - Please leave all valuables, including medications, at home the day of surgery. If you are going home after surgery, a licensed gravel truck driver must drive you home. - NO public transportation without another adult if you receive anesthesia. - We recommend that an adult stay with you for 24 hours following discharge. - We also recommend that you do not drive, make important decision, drink alcoholic beverages, or take any drugs that were not prescribed by your health care provider for at least 24 hours after your discharge time. For Pediatric surgeries, we recommend two adults accompany the child home. Follow any additional instructions given to you from your surgeon. If you or anyone in your household have experienced Covid symptoms in the past week, please notify your surgeon or the nurse liaison at the phone number below for possible testing. Telephone instructions given to ____PT and asked if any additional questions and then verbalized understanding. Patient advised to call surgeon office or pre surgery nurse liaison [phone] if any additional questions.
[2023-04-02 06:28] VITALS: BP 137/63; PULSE 71; RESP 18; TEMP 36.2; O2SAT 99
[2023-04-02] MEDS: LACTATED RINGERS 1,000 ML 30 ML IV CONT (06:40)
[2023-04-02 06:43] LABS: Glucose Point of Care 127 mg/dl (65-105)
--- NOTE | 2023-04-02 07:11 | WPDANESEPPF ---
Anes - Initial Pre Proc Eval Procedure: Operation Date: 04/02/23 07:30 Proposed Procedures p Left Open Carpal Tunnel Release - Junior Chowdary MD Date/Time: 04/02/23 07:11 Surgeon: Junior Chowdary MD Pre Op Diagnosis: Left Carpal Tunnel Syndrome Patient Data Age: 67 Gender: F Height: 1.58 m Weight: 83.63 kg Allergies Allergy/AdvReac Type Severity Reaction Status Date / Time amoxicillin Allergy Mild Rash Verified 03/27/23 14:50 liraglutide Allergy Unknown Rash Verified 03/27/23 14:50 ampicillin AdvReac Intermediate ITCHY RASH Verified 03/27/23 14:50 Home Medications Medication Instructions Recorded Confirmed Type cyclobenzaprine 10 mg tablet 10 mg PO TID PRN Muscle Spasm 09/13/20 03/27/23 History duloxetine 60 mg capsule,delayed 60 mg PO DAILY #1 cap 09/13/20 03/27/23 Rx release naproxen 500 mg tablet 500 mg PO BID PRN Pain 09/13/20 03/27/23 History omeprazole 20 mg capsule,delayed 20 mg PO DAILY #1 cap 09/13/20 03/27/23 Rx release vitamin B complex (B 1 tablet PO DAILY 03/04/22 03/27/23 History Complex-Vitamin B12 tablet) flash glucose sensor (FreeStyle 04/16/22 03/27/23 History Lisset 2 Sensor kit) blood sugar diagnostic (OneTouch #200 ea 10/14/22 03/27/23 Rx Ultra Test strips) blood-glucose meter (OneTouch #1 ea 10/14/22 03/27/23 Rx Ultra2 Meter) hydrochlorothiazide 25 mg tablet 25 mg PO DAILY #1 tablet 10/14/22 03/27/23 Rx lancets 30 gauge (OneTouch Delica #100 ea 10/14/22 03/27/23 Rx Lancets) pen needle, diabetic 31 gauge x #100 ea 10/14/22 03/27/23 Rx 3/16 (BD Ultra-Fine Mini Pen Needle) rosuvastatin 20 mg tablet 20 mg PO DAILY 90 days #90 tabs 01/02/23 03/27/23 Rx solifenacin 10 mg tablet 10 mg PO DAILY URINARY URGENCY 01/02/23 03/27/23 History albuterol sulfate 90 mcg/actuation 1 inh inhalation Q4H PRN Shortness 02/12/23 03/27/23 History aerosol inhaler Of Breath aspirin 81 mg capsule 81 mg PO DAILY 02/12/23 03/27/23 History insulin lispro-aabc 100 unit/mL 5 unit (0.05 mL) subcut TIDWMEAL 02/12/23 03/27/23 Rx subcutaneous pen (Lyumjev KwikPen #15 mL U-100 Insulin) meclizine 12.5 mg tablet 12.5 mg PO BID PRN VETIGO 02/12/23 03/27/23 History calcium carbonate 600 mg-vitamin 1 tablet PO DAILY PRN 03/27/23 03/27/23 History D3 10 mcg (400 unit) tablet (Calcium 600 + D(3)) dulaglutide 4.5 mg/0.5 mL See Rx Instructions .Route 03/27/23 03/27/23 Rx subcutaneous pen injector .COMPLEX #6 mL (Trulicity) insulin degludec 100 unit/mL (3 20 unit subcut QAM 03/27/23 03/27/23 History mL) subcutaneous pen (Tresiba FlexTouch U-100 insulin) ketoconazole 2 % topical cream 1 applic topical BID 03/27/23 03/27/23 History loratadine 10 mg tablet 10 mg PO BID 03/27/23 03/27/23 History triamcinolone acetonide 0.1 % 1 applic topical BID 03/27/23 03/27/23 History topical cream Laboratory Tests 04/02/23 06:40 POC Capillary Glucose 127 H mg/dl (65-105) Patient hx anesthesia problems: none Family hx anesthesia problems: none Results Review: All pre-operative results and documents have been reviewed as part of the pre-operative evaluation. [facility] Past Medical History Medical History Abnormal biliary HIDA scan Adenomatous colon polyp Anxiety and depression Asthma Bipolar 1 disorder BMI 35.0-35.9,adult Cervical cancer Depressed bipolar disorder Diabetes mellitus Diabetic peripheral neuropathy GERD (gastroesophageal reflux disease) Goiter Heart murmur HLD (hyperlipidemia) [place] (hard of hearing) HTN (hypertension) Menopause Morbid obesity Neuropathy Obesity Osteoarthritis Polycythemia, secondary Pure hypercholesterolemia Type 2 diabetes mellitus with complication Surgical History Surgical History H/O: hysterectomy History of sleeve gastrectomy Hx of cardiac cath Knee joint replacement status Family Histor
--- NOTE | 2023-04-02 07:16 | WPDHPUPDATE1 ---
History and Physical Update Update Date/Time: 04/02/23 07:16 History and Physical has been reviewed, including an updated exam of the patient. There are NO changes in the patient's condition. Risks, benefits, and alternatives have been discussed and questions answered. Patient agrees to proceed with procedure.
[2023-04-02] MEDS: ceFAZolin 2 GM/D5W 50 ML 2 GM/50 ML BAG IVPB (07:26)
[2023-04-02] MEDS: LIDO 1%/EPINEPHRINE 1:100,000 50 ML VIAL INFILTRATE (07:47)
[2023-04-02 08:13] VITALS: BP 125/56; PULSE 70; RESP 14; O2SAT 95
[2023-04-02 08:32] LABS: Glucose Point of Care 120 mg/dl (65-105)
[2023-04-02 08:40] VITALS: BP 118/59; PULSE 67; RESP 14; O2SAT 100
[2023-04-02 09:05] VITALS: BP 144/62; PULSE 60; RESP 14
--- NOTE | 2023-04-02 10:09 | W.PM.PROC2 ---
Procedure Note - Detailed Date of Procedure 04/02/23 Pre-op Diagnosis Left Carpal Tunnel Syndrome Post-op Diagnosis Same Procedure Performed Left open carpal tunnel release Surgeon Junior Chowdary MD Anesthesia MAC Description of Procedure The left carpal tunnel site was marked on the patient's left wrist in the holding area with her consent. She was then transferred for to the operating suite where she was placed supine on the operating table she was given IV sedation. The left upper extremity was prepped and draped in usual fashion. Time-out was held and confirmed. The sites were marked for incision and locally infiltrated with 1% lidocaine with epinephrine. The tourniquet was inflated with 250 mmHg. The incision was made as marked and then extended proximally in zigzag fashion to allow access more proximally.. Dissection was carried bluntly through the subcutaneous tissue to the palmar aponeurosis. This and the scarred transverse retinaculum were incised with a 15. Blade opening the canal. Under 3 point retraction the healed ligament was divided distally and proximally. Proximally additional retinaculum and carpal ligament were incised. This seemed to completely release a compression over the nerve. The tourniquet was released at that point and hemostasis was achieved. The skin was closed with interrupted 5 0 nylon suture. The usual bandage was applied and the patient was discharged in stable condition. Estimated Blood Loss 1 Tourniquet Time 7 Drains No Packing No Pathology None sent Complications No immediate complications Condition Stable Disposition Same day
== END 2023-04-02 09:14 | disposition home or self-care (01) ==
PROVIDERS: PCP Internal Medicine; Visit Provider Plastic Surgery
PROC: (CPT 64721; principal; 2023-04-02 07:30)
DX: G56.02 Carpal tunnel syndrome, left upper limb (principal); E11.42 Type 2 diabetes mellitus with diabetic polyneuropathy; I10 Essential (primary) hypertension; F41.8 Other specified anxiety disorders; J45.909 Unspecified asthma, uncomplicated; F31.9 Bipolar disorder, unspecified; K21.9 Gastro-esophageal reflux disease without esophagitis; E78.00 Pure hypercholesterolemia, unspecified; Z85.41 Personal history of malignant neoplasm of cervix uteri; Z98.84 Bariatric surgery status; Z79.51 Long term (current) use of inhaled steroids; Z79.4 Long term (current) use of insulin; Z79.899 Other long term (current) drug therapy; E66.9 Obesity, unspecified; Z68.35 Body mass index [BMI] 35.0-35.9, adult
CPT/HCPCS: 64721; 82948; A9270; J0690; J2250; J2704; J3010; J7120

== ENCOUNTER 2023-05-07 01:57 | Day surgery (SDC) | payer MEDICARE, MEDICAID, SELFPAY ==
[2023-05-01 15:35] VITALS: BMI 35.3
--- NOTE | 2023-05-01 15:39 | PC.NURSE ---
Report to the Outpatient Waiting Room, entrance under the green pavilion located off [facility], at time __0615 on date _05/07/23 . Planned Procedure Time: ___814 . Time changes happen often and if your time is changed the preop area will call you the afternoon before. - You and your visitor will be asked to self-screen and do not enter if you have any COVID symptoms. - A mask is optional within the hospital at this time. Patients may have clear liquids (water, carbonated beverages, clear teas, apple juice) until 3 hours prior to surgery (0515 AM) with a maximum of 20 ounces. - No food from midnight until time of surgery - Infants may have breast milk until 4 hours before surgery, formula 6 hours prior to surgery. - Children will be allowed to drink immediately following surgery. If applicable, please bring a bottle or sippy cup to assist with drinking. Juice, water, soda, and popsicles are readily available. For infants on formula, please bring formula the day of surgery. Pacifiers are allowed. Take the following medications with a SIP of water the morning of surgery: ___CYCLOBENZAPRINE, PAIN PILL, & INHALER IF NEEDED DO NOT STOP ANY OF YOUR OTHER PRESCRIPTION MEDICATIONS PRIOR TO SURGERY ?EXCEPT THE FOLLOWING Medications to discontinue per physician __NAPROXEN PER DR. THOMAS INSTRUCTIONS, MULTIVITAMIN 3 DAYS PRIOR TO SURGERY PER ANESTHESIA, Date to take last dose 05/03/23 Please no make-up, nail icelandic, hairspray, perfume, deodorant, or body powder the day of surgery. No jewelry (including any body piercings) or valuables the day of surgery, leave them at home. Please take a shower or bath the night before, or the morning of, surgery with an antibacterial soap. Wear comfortable, loose fitting clothing. Children are encouraged to wear pajamas. - Jewelry must be removed prior to entering the operating room. Rings and piercings that are not removed may be cut off. - The hospital will not accept responsibility for valuables. - Please leave all valuables, including medications, at home the day of surgery. If you are going home after surgery, a licensed trash truck driver must drive you home. - NO public transportation without another adult if you receive anesthesia. - We recommend that an adult stay with you for 24 hours following discharge. - We also recommend that you do not drive, make important decision, drink alcoholic beverages, or take any drugs that were not prescribed by your health care provider for at least 24 hours after your discharge time. For Pediatric surgeries, we recommend two adults accompany the child home. Follow any additional instructions given to you from your surgeon. If you or anyone in your household have experienced Covid symptoms in the past week, please notify your surgeon or the nurse liaison at the phone number below for possible testing. Telephone instructions given to ___PATIENT and asked if any additional questions and then verbalized understanding. Patient advised to call surgeon office or pre surgery nurse liaison [phone] if any additional questions.
--- NOTE | 2023-05-06 20:40 | WPDANESEPPF ---
Anes - Initial Pre Proc Eval Procedure: Operation Date: 05/07/23 07:30 Proposed Procedures p Right Open Carpal Tunnel Release, - Junior Chowdary MD s Excision of Right Palmar Skin Mass - Junior Chowdary MD Date/Time: 05/06/23 20:40 Surgeon: Junior hCowdary MD Pre Op Diagnosis: right carpal tunnel syndrome, rt lazo skin mass Patient Data Age: 67 Gender: F Height: 1.58 m Weight: 88.5 kg Allergies Allergy/AdvReac Type Severity Reaction Status Date / Time amoxicillin Allergy Mild Rash Verified 05/01/23 15:28 liraglutide Allergy Unknown Rash Verified 05/01/23 15:28 ampicillin AdvReac Intermediate ITCHY RASH Verified 05/01/23 15:28 Home Medications Medication Instructions Recorded Confirmed Type cyclobenzaprine 10 mg tablet 10 mg PO TID PRN Muscle Spasm 09/13/20 05/01/23 History duloxetine 60 mg capsule,delayed 60 mg PO DAILY #1 cap 09/13/20 05/01/23 Rx release naproxen 500 mg tablet 500 mg PO BID PRN Pain 09/13/20 05/01/23 History omeprazole 20 mg capsule,delayed 20 mg PO DAILY #1 cap 09/13/20 05/01/23 Rx release vitamin B complex (B 1 tablet PO DAILY 03/04/22 05/01/23 History Complex-Vitamin B12 tablet) flash glucose sensor (FreeStyle 04/16/22 05/01/23 History Lisset 2 Sensor kit) blood sugar diagnostic (QuanttusTouch #200 ea 10/14/22 05/01/23 Rx Ultra Test strips) blood-glucose meter (OneTouch #1 ea 10/14/22 05/01/23 Rx Ultra2 Meter) hydrochlorothiazide 25 mg tablet 25 mg PO DAILY #1 tablet 10/14/22 05/01/23 Rx lancets 30 gauge (OneTouch Delica #100 ea 10/14/22 05/01/23 Rx Lancets) pen needle, diabetic 31 gauge x #100 ea 10/14/22 05/01/23 Rx 3/16 (BD Ultra-Fine Mini Pen Needle) solifenacin 10 mg tablet 10 mg PO DAILY URINARY URGENCY 01/02/23 05/01/23 History albuterol sulfate 90 mcg/actuation 1 inh inhalation Q4H PRN Shortness 06/21/23 09/07/23 History aerosol inhaler Of Breath aspirin 81 mg capsule 81 mg PO DAILY 02/12/23 05/01/23 History insulin lispro-aabc 100 unit/mL 5 unit (0.05 mL) subcut TIDWMEAL 02/12/23 05/01/23 Rx subcutaneous pen (Lyumjev KwikPen #15 mL U-100 Insulin) meclizine 12.5 mg tablet 12.5 mg PO BID PRN VETIGO 02/12/23 05/01/23 History calcium carbonate 600 mg-vitamin 1 tablet PO DAILY 03/27/23 05/01/23 History D3 10 mcg (400 unit) tablet (Calcium 600 + D(3)) dulaglutide 4.5 mg/0.5 mL See Rx Instructions .Route 03/27/23 05/01/23 Rx subcutaneous pen injector .COMPLEX #6 mL (Trulicity) insulin degludec 100 unit/mL (3 20 unit subcut QAM 03/27/23 05/01/23 History mL) subcutaneous pen (Tresiba FlexTouch U-100 insulin) ketoconazole 2 % topical cream 1 applic topical BID 03/27/23 05/01/23 History loratadine 10 mg tablet 10 mg PO BID 03/27/23 05/01/23 History triamcinolone acetonide 0.1 % 1 applic topical BID 03/27/23 05/01/23 History topical cream hydrocodone 5 mg-acetaminophen 325 1 tablet PO Q6H PRN pain #6 tabs 04/02/23 05/01/23 Rx mg tablet rosuvastatin 20 mg tablet 20 mg PO DAILY 90 days #90 tabs 04/17/23 05/01/23 Rx Patient hx anesthesia problems: none Family hx anesthesia problems: none Results Review: All pre-operative results and documents have been reviewed as part of the pre-operative evaluation. [facility] Past Medical History Medical History (Updated 05/06/23 @ 20:41 by Johnathan Alejandre DO) Abnormal biliary HIDA scan Adenomatous colon polyp Anxiety and depression Asthma Bipolar 1 disorder BMI 35.0-35.9,adult Cervical cancer Depressed bipolar disorder Diabetes mellitus Diabetic peripheral neuropathy GERD (gastroesophageal reflux disease) Goiter Heart murmur HLD (hyperlipidemia) [place] (hard of hearing) HTN (hypertension) Menopause Morbid obesity Neuropathy Obesity KARL (obstructive sleep apnea) Osteoarthritis Polycythemia, secondary Pure hypercholesterolemia Type 2 diabetes mellitus with complication Surgical History Surgical History
[2023-05-07 07:00] VITALS: BP 142/58; PULSE 65; RESP 14; TEMP 37; O2SAT 100
[2023-05-07] MEDS: LACTATED RINGERS 1,000 ML 30 ML IV CONT (07:00)
[2023-05-07 07:08] LABS: Glucose Point of Care 157 mg/dl (65-105)
--- NOTE | 2023-05-07 07:13 | WPDHPUPDATE1 ---
History and Physical Update Update Date/Time: 05/07/23 07:13 History and Physical has been reviewed, including an updated exam of the patient. There are NO changes in the patient's condition. Risks, benefits, and alternatives have been discussed and questions answered. Patient agrees to proceed with procedure.
[2023-05-07] MEDS: LIDO 1%/EPINEPHRINE 1:100,000 20 ML VIAL 5 ML INFILTRATE (07:51)
[2023-05-07 08:09] VITALS: BP 136/52; PULSE 66; RESP 12; O2SAT 100
[2023-05-07 08:30] VITALS: BP 140/60; PULSE 67; RESP 16
[2023-05-07 09:00] VITALS: BP 135/51; PULSE 60; RESP 20
[2023-05-07] MEDS: BACITRACIN OINTMENT 15 GM TUBE 1 APPLIC TOPICAL (09:09)
--- NOTE | 2023-05-07 09:16 | W.PM.PROC2 ---
Procedure Note - Detailed Date of Procedure 05/07/23 Pre-op Diagnosis right carpal tunnel syndrome, rt lazo skin mass Post-op Diagnosis Same Procedure Performed R OCTR and incidental excision of right palmar skin mass in same incision. Surgeon Junior Chowdary MD Electrical Prospecting Operator [facility] Anesthesia MAC Description of Procedure The patient's right carpal tunnel site with small skin lesion in the proximal midline of the palm were marked the with the patient's consent in the holding area. She was taken to the operating room where she was placed supine on the operating table. Given IV sedation. The extremity was prepped and draped in usual fashion. The site was remarked for the incision to include the small skin mass and locally infiltrated with 1% lidocaine with epinephrine. The extremity was exsanguinated and the tourniquet inflated to 250 mmHg. Incision was made as marked to include removal of the small skin mass. And blunt dissection revealed the palmar aponeurosis. This and the transverse retinaculum were incised with a 15. Blade.. Under 3 point retraction the ligament was divided distally and proximally for complete release. There was some scar from the prior release years ago. Otherwise there was no unusual anatomy. The skin was then closed with interrupted 5 0 nylon suture. The tourniquet was released and the usual bandage applied chin discharge instructions in wound care and follow-up. She has a prescription for hydrocodone 5/325 6. Estimated Blood Loss -1.0 Tourniquet Time 15 Drains No Packing No Pathology None sent Complications No immediate complications Condition Stable Disposition Same day
[2023-05-07 09:20] VITALS: BP 130/50; PULSE 64; RESP 20
[2023-05-07 09:23] LABS: Glucose Point of Care 155 mg/dl (65-105)
== END 2023-05-07 09:43 | disposition home or self-care (01) ==
PROVIDERS: PCP Internal Medicine; Visit Provider Plastic Surgery
PROC: (CPT 64721; principal; 2023-05-07 07:30)
PROC: (CPT 64721; 2023-05-07 07:30)
DX: G56.01 Carpal tunnel syndrome, right upper limb (principal); L98.9 Disorder of the skin and subcutaneous tissue, unspecified; I10 Essential (primary) hypertension; E11.42 Type 2 diabetes mellitus with diabetic polyneuropathy; E78.5 Hyperlipidemia, unspecified; G47.33 Obstructive sleep apnea (adult) (pediatric); M81.0 Age-related osteoporosis without current pathological fracture; F31.9 Bipolar disorder, unspecified; K21.9 Gastro-esophageal reflux disease without esophagitis; E66.9 Obesity, unspecified; Z68.35 Body mass index [BMI] 35.0-35.9, adult; Z98.84 Bariatric surgery status; Z79.51 Long term (current) use of inhaled steroids; Z79.4 Long term (current) use of insulin; Z79.82 Long term (current) use of aspirin; Z79.85 Long-term (current) use of injectable non-insulin antidiabetic drugs
CPT/HCPCS: 64721; 82948; A9270; J2250; J2405; J2704; J3010; J7120

== ENCOUNTER 2023-06-19 09:57 | Outpatient (CLI) | payer MEDICARE, MEDICAID, SELFPAY ==
[2023-06-19 10:14] LABS: Basophils Absolute Auto 0.07 K/mm3 (0.00-0.10); Basophils Percent Auto 0.7 % (0.0-1.0); Eosinophils Absolute Auto 0.27 K/mm3 (0.02-0.50); Eosinophils Percent Auto 2.7 % (1.0-6.0); Hematocrit 41.7 % (35.0-42.0); Hemoglobin 14.2 g/dL (11.7-13.8); Immature Granulocyte Absolute 0.06 K/mm3 (0.00-0.00); Immature Granulocyte Percent A 0.6 % (0.0-0.0); Lymphocytes Absolute Auto 2.42 K/mm3 (1.10-4.50); Lymphocytes Percent Auto 24.6 % (18.0-42.0); Mean Corpuscular HGB Conc 34.1 g/dL (32.0-36.0); Mean Corpuscular Hemoglobin 30.9 pg (27.0-31.0); Mean Corpuscular Volume 90.7 fL (78.0-102.0); Mean Platelet Volume 8.8 fl (9.2-11.8); Monocytes Absolute Auto 0.68 K/mm3 (0.10-0.90); Monocytes Percent Auto 6.9 % (2.0-11.0); Neutrophils Absolute Auto 6.3 K/mm3 (1.7-7.2); Neutrophils Percent Auto 64.5 % (50.0-70.0); Platelet Count Result 407 K/mm3 (150-420); Red Cell Distribution Width 12.1 % (11.6-14.4); White Blood Count 9.8 K/mm3 (4.8-10.8)
[2023-06-19 10:39] LABS: Creatinine Urine 268.14 mg/dL (40-278); Microalbumin Urine Random 32.2 mg/L
[2023-06-19 11:13] LABS: Anion Gap 10 mmol/L (8-16); Blood Urea Nitrogen 14 mg/dL (7-18); Calcium 9.3 mg/dL (8.5-10.1); Carbon Dioxide 27 mmol/L (21-32); Chloride 106 mmol/L (98-108); Cholesterol 161 mg/dL (0-200); Estimated Glomerular Filt Rate > 60; Glucose 220 mg/dL (70-99); HDL Direct 63 mg/dL (40-60); LDL Cholesterol Calculated 74 mg/dL (<130); Osmolality Calculated 303 mOsm/kg (285-295); Potassium 4.4 mmol/L (3.5-5.1); Sodium 143 mmol/L (136-145); Triglycerides 121 mg/dL (0-150); Vitamin B12 736 pg/mL (193-986)
[2023-06-19 11:17] LABS: CRP < 0.5 mg/dL (0.0-0.9)
[2023-06-25 18:23] LABS: Vitamin D 25 Hydroxy 26 ng/mL (30-100)
== END 2023-06-19 09:58 | disposition home or self-care (01) ==
LOC: CHSLAB 10:00
PROVIDERS: PCP Internal Medicine; Visit Provider Internal Medicine Endocrinology, Diabetes & Metabolism
DX: G62.9 Polyneuropathy, unspecified (principal); E78.5 Hyperlipidemia, unspecified; E55.9 Vitamin D deficiency, unspecified; E11.65 Type 2 diabetes mellitus with hyperglycemia
CPT/HCPCS: 36415; 80048; 80061; 82043; 82306; 82607; 85025; 86140

== ENCOUNTER 2023-10-16 11:00 | Outpatient (CLI) | payer MEDICARE, MEDICAID, SELFPAY ==
[2023-10-16 11:14] LABS: Basophils Absolute Auto 0.08 K/mm3 (0.00-0.10); Basophils Percent Auto 0.9 % (0.0-1.0); Eosinophils Absolute Auto 0.32 K/mm3 (0.02-0.50); Eosinophils Percent Auto 3.7 % (1.0-6.0); Hematocrit 40.5 % (35.0-42.0); Hemoglobin 13.9 g/dL (11.7-13.8); Immature Granulocyte Absolute 0.04 K/mm3 (0.00-0.00); Immature Granulocyte Percent A 0.5 % (0.0-0.0); Lymphocytes Absolute Auto 2.51 K/mm3 (1.10-4.50); Lymphocytes Percent Auto 29.1 % (18.0-42.0); Mean Corpuscular HGB Conc 34.3 g/dL (32.0-36.0); Mean Corpuscular Hemoglobin 30.5 pg (27.0-31.0); Mean Platelet Volume 9.7 fl (9.2-11.8); Monocytes Absolute Auto 0.64 K/mm3 (0.10-0.90); Monocytes Percent Auto 7.4 % (2.0-11.0); Neutrophils Absolute Auto 5.1 K/mm3 (1.7-7.2); Neutrophils Percent Auto 58.4 % (50.0-70.0); Platelet Count Result 273 K/mm3 (150-420); Red Blood Count 4.55 M/mm3 (4.20-5.40); Red Cell Distribution Width 12.1 % (11.6-14.4); White Blood Count 8.6 K/mm3 (4.8-10.8)
[2023-10-16 11:15] LABS: Appearance Urine Clear (Clear); Bilirubin Urine Negative (Negative); Blood Urine Negative (Negative); Color Urine Yellow (Yellow); Glucose Urine UA Negative (Negative); Ketones Urine Negative (Negative); Leukocyte Esterase Ur 1+ LEU/UL (Negative); Nitrate Urine Negative (Negative); Protein Urine Trace (Negative); Specific Grav Ur 1.025 (1.010-1.020)
[2023-10-16 11:26] LABS: Add Urine Microscopic? YES; RBC Urine 0-2 /hpf (0-2); Squamous Epithelial Cell Urine Few /hpf (Few)
[2023-10-16 11:27] LABS: Bacteria Urine Trace /hpf; Mucus Urine Moderate /lpf
[2023-10-16 12:21] LABS: CRP < 0.5 mg/dL (0.0-0.9)
== END 2023-10-16 11:01 | disposition home or self-care (01) ==
LOC: CHSLAB 11:02
PROVIDERS: PCP Internal Medicine; Visit Provider Internal Medicine
DX: D72.829 Elevated white blood cell count, unspecified (principal); R51.9 Headache, unspecified; R82.90 Unspecified abnormal findings in urine
CPT/HCPCS: 36415; 81001; 85025; 86140; 87086; 87088

== ENCOUNTER 2023-12-02 14:45 | Outpatient (CLI) | payer MEDICARE, MEDICAID, SELFPAY ==
--- NOTE | ~2023-12-02 | XR_ITS ---
[XR ribs RT 2V ] INDICATION: Right rib pain TECHNIQUE: Frontal projection of the upper right ribs, frontal projection of the lower right ribs, ob lique projection of all the right ribs. FINDINGS: There are no displaced rib fractures identified. There are no soft tissue abnormality see n. The lungs are clear. There are cholecystectomy clips. IMPRESSION: 1:No acute displaced rib fractures. Reviewed, dictated and finalized at location A.
--- NOTE | ~2023-12-02 | XR_ITS ---
EXAMINATION: XR thoracolumbar DATE: 12/02/2023 15:48 INDICATION: Right flank pain. TECHNIQUE: 2 views of the thoracolumbar spine were obtained. COMPARISON: None. FINDINGS: There is 9 degrees dextrocurvature of thoracic spine. Vertebral body heights are normal. Th ere is mild to moderately decreased disc height at multiple levels in thoracic and lumbar spine. Ther e are multilevel facet joint osteoarthritis, severe at multiple levels in thoracic and lumbar spine. Surgical clips in the right upper quadrant are likely from cholecystectomy. IMPRESSION: 1. Moderate thoracic and lumbar spondylosis. Reviewed, dictated and finalized at location A.
[2023-12-02 15:56] LABS: Basophils Absolute Auto 0.08 K/mm3 (0.00-0.10); Basophils Percent Auto 0.9 % (0.0-1.0); Eosinophils Absolute Auto 0.25 K/mm3 (0.02-0.50); Eosinophils Percent Auto 2.9 % (1.0-6.0); Hematocrit 39.8 % (35.0-42.0); Hemoglobin 13.4 g/dL (11.7-13.8); Immature Granulocyte Absolute 0.03 K/mm3 (0.00-0.00); Immature Granulocyte Percent A 0.3 % (0.0-0.0); Lymphocytes Absolute Auto 2.94 K/mm3 (1.10-4.50); Lymphocytes Percent Auto 34.1 % (18.0-42.0); Mean Corpuscular HGB Conc 33.7 g/dL (32-36); Mean Corpuscular Hemoglobin 30.9 pg (27.0-31.0); Mean Corpuscular Volume 91.9 fL (78.0-102.0); Mean Platelet Volume 9.4 fl (9.2-11.8); Monocytes Absolute Auto 0.63 K/mm3 (0.10-0.90); Monocytes Percent Auto 7.3 % (2.0-11.0); Neutrophils Absolute Auto 4.69 K/mm3 (1.70-7.20); Neutrophils Percent Auto 54.5 % (50.0-70.0); Platelet Count Result 329 K/mm3 (150-420); Red Blood Count 4.33 M/mm3 (4.20-5.40); Red Cell Distribution Width 12.5 % (11.6-14.4); White Blood Count 8.6 K/mm3 (4.8-10.8)
[2023-12-02 16:22] LABS: Alanine Aminotransferase 27 U/L (14-59); Albumin Level 3.1 g/dL (3.4-5.0); Alkaline Phosphatase 72 U/L (46-116); Anion Gap 7 mmol/L (4-12); Aspartate Amino Transferase 22 U/L (15-37); Bilirubin,Total 0.3 mg/dL (0.00-1.00); Blood Urea Nitrogen 9 mg/dL (7-18); Calcium 8.9 mg/dL (8.5-10.1); Carbon Dioxide 30 mmol/L (21-32); Chloride 104 mmol/L (98-108); Estimated Glomerular Filt Rate > 60; Glucose 109 mg/dL (70-99); Osmolality Calculated 291 mOsm/kg (285-295); Potassium 3.9 mmol/L (3.5-5.1); Sodium 141 mmol/L (136-145); Thyroid Stimulating Hormone 2.48 uIU/mL (0.36-3.74)
[2023-12-02 16:25] LABS: CRP < 0.5 mg/dL (0.0-0.9)
== END 2023-12-02 14:46 | disposition home or self-care (01) ==
LOC: CHSLAB 14:51
PROVIDERS: PCP Internal Medicine; Visit Provider Internal Medicine
DX: R10.9 Unspecified abdominal pain (principal); R60.9 Edema, unspecified; M43.06 Spondylolysis, lumbar region; M43.04 Spondylolysis, thoracic region
CPT/HCPCS: 36415; 71100; 72080; 80053; 84443; 85025; 86140

== ENCOUNTER 2023-12-10 10:51 | Outpatient (RCR) | payer MEDICARE, MEDICAID, SELFPAY ==
--- NOTE | 2023-12-10 13:14 | OPREHPOC ---
Outpatient Therapy Plan of Care This is a Multidisciplinary Plan of Care that may contain components documented by all disciplines (PT, OT, and ST.) PT Problem 1 PT Problem #1 Knowledge Deficit PT Goal 1 Goal The patient will be independent in a home exercise program. Target Visit 6 PT Problem 2 PT Problem #2 Pain PT Goal 1 Goal The patient will report reduced low back/flank/rib pain to 4/10 or less. Target Visit 18 PT Problem 3 PT Problem #3 Impaired Balance PT Goal 1 Goal The patient will improve Tinetti Balance Scale score to 24/28 indicating less of a fall risk. Target Visit 18 PT Problem 4 PT Problem #4 Impaired Range of Motion PT Goal 1 Goal Patient to improve lumbar AROM by 5 degrees in all planes to improve functional mobility. Target Visit 18 PT Problem 5 PT Problem #5 Impaired Strength PT Goal 1 Goal 1. The patient will demonstrate 30% or less self perceived disability per the Oswestry Back Index. 2. The patient will demonstrate the ability to lift 10 lbs from floor to waist with proper body mechanics to improve ability to lift household items. Target Visit 18
--- NOTE | 2023-12-10 13:15 | PTOPEVAL1 ---
Assessment and note entered by Mariela Ovalles, PT Evaluation Information Assessment Status Evaluation Diagnosis R flank pain, R rib pain Onset 12/03/23 Subjective Information Elsa Duong reports she started having right lower back pain that started in May 2023. She notes the pain comes and goes. She has had several falls and her doctor thought she may have broken her lowest rib. She had x-rays and blood work and was told she has arthritis but no broken bones. She was referred to PT. She also has a history of 2 back surgeries about 35 and 34 years ago. She notes pain can come on suddenly when sitting and sometimes it happens when she twists. She has difficulty bending and picking items up, she also has difficulty climbing a ladder, Reported Pain Level Pain Score 0: Self Report Assessment PT Clinical Summary Elsa Duong presents with right lower back, flank, and rib pain that has been intermittent since May 2023. The pain has not been improving so she finally went to the doctor. She was diagnosed with arthritis and referred to PT. She has difficulty with bending, lifting, rolling in bed, and balance. She is reporting frequent falls as well. She objectively demonstrates decreased and painful lumbar AROM, decreased core and hip strength, decreased lumbar PA and right 9-12 rib mobility, tenderness in the right lower ribs and lumbar spine, poor balance, and decreased functional abilities. She is demonstrating a high fall risk per the Tinetti Balance Scale. She will benefit from skilled PT to address these limitations. Plan of Care Interventions Electrical Stimulation,Hot Pack/Cold Pack,Manual Therapy,Neuro Re-education,Patient/Caregiver Educati,Therapeutic Activities,Therapeutic Exercise PT Services Indicated Yes Treatment Frequency and 3 times a week for 18 visits Duration These treatments will address the objective and functional deficits as defined above. The patient will be advanced safely and appropriately in order for the patient to progress towards his/her prior level of function. Additional exercises will be introduced and as well as a comprehensive home exercise program upon discharge, if needed, ?to ensure carryover of functional gains achieved in the clinic. This treatment plan has been reviewed and agreement upon by the patient.
--- NOTE | 2024-01-23 07:55 | OPREHPOC ---
Outpatient Therapy Plan of Care This is a Multidisciplinary Plan of Care that may contain components documented by all disciplines (PT, OT, and ST.) PT Problem 1 PT Problem #1 Knowledge Deficit PT Goal 1 Goal The patient will be independent in a home exercise program. Target Visit 6 Progress Met PT Problem 2 PT Problem #2 Pain PT Goal 1 Goal The patient will report reduced low back/flank/rib pain to 4/10 or less. The patient will report no R glute pain The patient will not be tender to palpation of the R glute. Target Visit 18 Progress Not Met PT Problem 3 PT Problem #3 Impaired Balance PT Goal 1 Goal The patient will improve Tinetti Balance Scale score to 24/28 indicating less of a fall risk. Target Visit 18 Progress Not Met PT Problem 4 PT Problem #4 Impaired Range of Motion PT Goal 1 Goal Patient to improve lumbar AROM by 5 degrees in all planes to improve functional mobility. Target Visit 18 Progress Not Met PT Problem 5 PT Problem #5 Impaired Strength PT Goal 1 Goal 1. The patient will demonstrate 30% or less self perceived disability per the Oswestry Back Index. 2. The patient will demonstrate the ability to lift 10 lbs from floor to waist with proper body mechanics to improve ability to lift household items. Target Visit 18 Progress Not Met
--- NOTE | 2024-01-23 07:56 | PTOPREEVAL ---
Assessment and note entered by JT File, PT Evaluation Information Assessment Status Re-evaluation Diagnosis R flank pain, R rib pain, low back pain Onset 12/03/23 Subjective Information patient has new orders in chart to include lower back pain. she reports today her pain fluctuates from a 3/10-7/10. she reports she has more R glute pain, and reports feeling something popped. Assessment PT Clinical Summary mrs. duckworth presents to skilled PT today with significant tenderness and pain in the R glute. she does display improvement in bilateral LE strength, but is limited functionally due to her R side and R glute pain. she has met goal for HEP, but thus far has not met any other goals for skilled PT. patient would benefit from continued skilled PT to continue to improve her strength, stability, balance, functional mobility, and reduce pain to achieve her goals and return to her prior level functional activity performance/ quality of life. Plan of Care Interventions Electrical Stimulation,Hot Pack/Cold Pack,Manual Therapy,Neuro Re-education,Patient/Caregiver Educati,Therapeutic Activities,Therapeutic Exercise PT Services Indicated Yes Treatment Frequency and continue skilled PT 2x weekly for 6 more visits Duration These treatments will address the objective and functional deficits as defined above. The patient will be advanced safely and appropriately in order for the patient to progress towards his/her prior level of function. Additional exercises will be introduced and as well as a comprehensive home exercise program upon discharge, if needed, ?to ensure carryover of functional gains achieved in the clinic. This treatment plan has been reviewed and agreement upon by the patient.
--- NOTE | 2024-05-27 10:04 | PCPTNOTE ---
Pt has not been seen since 01/07/24 and did not follow up. She is discharged. -Mariela Ovalles, PT
== END 2024-01-07 20:00 | disposition home or self-care (01) ==
LOC: CHSPT 10:51
PROVIDERS: Visit Provider Internal Medicine
DX: R10.9 Unspecified abdominal pain (principal); R07.82 Intercostal pain
CPT/HCPCS: 97014; 97110; 97140; 97161; G0283

== ENCOUNTER 2024-05-20 13:00 | Outpatient (CLI) | payer MEDICARE, SELFPAY | END 2024-05-20 13:01 | disposition home or self-care (01) | LOC: CHSLAB 13:08 | PROVIDERS: PCP Internal Medicine | DX: R30.0 Dysuria (principal) | CPT/HCPCS: 87086; 87088 ==

== ENCOUNTER 2025-03-07 11:10 | Outpatient (CLI) | payer MEDICARE, MEDICAID, SELFPAY ==
--- OUTSIDE RECORDS SUMMARY | 2025-03-07 11:16 | XMS_ITS ---
Author Organization [facility] Address [address] [place], [place] [address] Care Team Providers Care Balance Wheel Hand Filer Name Role Phone COOPER MELTON Unavailable [phone] Dwayne Núñez Unavailable Unavailable SNOOK, COOPER Unavailable [phone] REASON FOR VISIT *General care Encounters Encounter Location Date Provider Diagnosis [address] [id number] 10/14/2024 COOPER CELIS Plan Of Treatment No Information Progress Notes * Elsa BARBER LDOB:1955 (69 yo F)Acc No.[id number]:10/14/2024 Patient: Gibson OLIVER Elsa Ly Provider: Annmarie Celis DPM :1955 A ge:69 Y S ex:Female Date:10/14/2024 Address:[address] [place] [address] [id number] Subjective: * Chief Complaints: * 1 . *General care. * Medical History: Objective: * Vitals: Assessment: Plan: * Treatment: * Billing Information: * Visit Code: * Procedure Codes: * Electronic signature of COOPER CELIS DPM on 03/07/2025 at 11:16 AM CDT Sign off status: Pending * Provider: Annmarie Celis DPM Date: 10/14/2024 Generated for Printi ng/Faxing/eTransmitting on: 0 03/07/2025 11:16 AM CDT
--- OUTSIDE RECORDS SUMMARY | 2025-03-07 11:16 | XMS_ITS | Referral Summary ---
Author Organization [facility] Address [address] [place] [address] Care Team Providers Care Coin Machine Assembler Name Role Phone Dwayne Núñez MD Primary Care Provider [phone] Allergies Active Allergy Reactions Criticality Noted Date Comments Ampicillin Hives,Rash High 07/11/2017 Gadolinium-Containing Contrast Media Anaphylaxis High 09/03/2021 Vitals, ACT team called. O2, Benadryl, and Epipen were given during ACT Liraglutide Hives Medium 01/08/2016 Medications famotidine (PEPCID) 20 mg tablet Take 1 tablet (20 mg total) by mouth 2 (two) times a day 30 tablet 2 Active albuterol HFA (PROVENTIL HFA,VENTOLIN HFA,PROAIR HFA) 90 mcg/actuation inhaler INHALE 2 PUFFS BY MOUTH TWICE DAILY (SHAKE WELL) 2 Active aspirin 81 mg enteric coated tablet Take by mouth 0 Active OneTouch Ultra Test strip USE TO CHECK SUGARS TWO TIMES DAILY 2 Active Trulicity 4.5 mg/0.5 mL pen injector 2 Active Jardiance 10 mg tablet Take 10 mg by mouth daily 2 Active hydroCHLOROthia zide (HYDRODIURIL) 25 mg tablet Take by mouth 0 Active loratadine (CLARITIN) 10 mg tablet Take 10 mg by mouth daily 2 Active omeprazole (PriLOSEC) 40 mg capsule 2 Active naproxen (NAPROSYN) 500 mg tablet Take 500 mg by mouth 2 Active BD Ultra-Fine Mini Pen Needle 31 gauge x 3/16 needle as directed 2 Active rosuvastatin (CRESTOR) 5 mg tablet Take 5 mg by mouth daily 2 Active solifenacin (VESIcare) 10 mg tablet Take 10 mg by mouth daily 2 Active triamcinolone (KENALOG) 0.1 % cream APPLY A THIN LAYER OF CREAM TO THE AFFECTED AREA(S) TWO TIMES DAILY 2 Active insulin degludec (TRESIBA) 100 unit/mL (3 mL) pen for injection Inject under the skin Active insulin glargine (insulin glargine) 100 unit/mL (3 mL) pen for injection Active DULoxetine DR (CYMBALTA) 60 mg capsule Take 60 mg by mouth daily Active fluticasone propionate (FLONASE) 50 mcg/actuation nasal spray Administer 1 spray into each nostril daily Active cyclobenzaprine (FLEXERIL) 10 mg tablet Take 10 mg by mouth 3 (three) times a day as needed for muscle spasms Active Active Problems Problem Noted Date Diagnosed Date Sensorineural hearing loss ( SNHL) of left ear with restricted hearing of right ear 02/12/2022 Assessment & Plan (02/12/2022 10:57 AM CDT): Continue Hearing aids Continue to work with Dentist Referred otalgia of both ears 02/12/2022 Assessment & Plan (02/12/2022 10:57 AM CDT): Continue Hearing aids Continue to work with Dentist TMJ dysfunction discussed and Handout provided Social History Tobacco Use Types Packs/Day Years Used Date Smoking Tobacco: Never Comments Unknown Sex and Gender Information Value Date Recorded Sex Assigned at Not on file Legal Sex Female 1:14 AM SHIFT LAB TECHNICIAN Gender Identity Not on file Sexual Orientation Not on file Last Filed Vital Signs Vital Sign Reading Time Taken Comments Blood Pressure 128/73 02/12/2022 10:40 AM CDT Pulse 62 02/12/2022 10:40 AM CDT Temperature 36.6 C (97.9 F) 09/03/2021 4:36 PM SHIFT LAB TECHNICIAN Respiratory Rate 18 02/12/2022 10:40 AM CDT Oxygen Saturation 99% 02/12/2022 10:40 AM CDT Inhaled Oxygen Concentration - - Weight 82.8 kg (182 lb 9.6 oz) 02/12/2022 10:40 AM CDT Height 157.5 cm (5' 2) 02/12/2022 10:40 AM CDT Body Mass Index 33.4 02/12/2022 10:40 AM CDT Plan of Treatment Not on file Medical Devices Implanted Type Area Dog Trainer Device Identifier Shelf Expiration Date Model / Serial / Lot Rt Total Knee Arthroplasty- Implanted:05/29 (Quantity not on file) Right: Knee Insurance [facility] MEDICARE Address: [place] [id number] [facility] MEDICARE Address: [address] [address] Care Teams Coin Machine Assembler Relationship Specialty Start Date End Date Dwayne Núñez MD PCP - General 09/03/21
--- OUTSIDE RECORDS SUMMARY | 2025-03-07 11:17 | XMS_ITS | Clinical Summary ---
Author Organization [facility] Address [address] [place] [address] Phone Care Team Providers Care Appointment Clerk Name Role Phone Ambrocio Núñez MD Primary Care Provider [phone] Allergies Active Allergy Reactions Criticality Noted Date Comments Ampicillin Hives,Rash Liraglutide Hives 01/08/2016 Medications Aspirin 81 MG Tablet Active Calcium-Vitamin D-Vitamin K (CALCIUM + D) 500-1000-40 MG-UNT-MCG Chewable Tablet Acti ve Cinnamon 500 MG Capsule Active Multiple Vitamins-Minera ls (COMPLETE WOMENS) Tablet Activ e DULoxetine (CYMBALTA) [address] Particles Active fentaNYL (DURAGESIC) 100 MCG/HR PATCH 72 HR Active fish oil-omega-3 fatty acids 1000 MG Capsule Acti ve Flaxseed, Linseed, (FLAX SEED OIL PO) Active other Fluticasone Nasal 16 GM MISC Active Fosinopril Sodium 40 MG Tablet Active hydrochlorothia zide 25 MG Tablet Active HYDROcodone-meggan taminophen (VICODIN ES) 7.5-750 MG Tablet Active atorvastatin (LIPITOR) 80 MG Tablet Active metoprolol Succinate (TOPROL-XL) 25 MG TABLET SR 24 HR Active oxybutynin (DITROPAN) 5 MG Tablet Active B Complex-Folic Acid (SUPER B COMPLEX MAXI) Tablet Active temazepam (RESTORIL) 15 MG Capsule Active ezetimibe (ZETIA) 10 MG Tablet Active Omeprazole 20 MG Tablet Delayed Response Active insulin lispro (HUMALOG) 100 UNIT/ML Solution by Subcutaneous route 3 times daily (after meals). Use as directed Active cyclobenzaprine (FLEXERIL) 10 MG Tablet Take 10 mg by mouth 3 times daily as needed for Muscle spasms. Active naproxen (NAPROSYN) 500 MG Tablet Take 500 mg by mouth 2 times daily (with meals). Active diclofenac sodium (VOLTAREN) 1 % Gel Apply 4 g up to qid to the R knee 3 Tube 1 6 Active Active Problems Problem Noted Date Diagnosed Date Morbid obesity 01/08/2016 Earache, referred Chronic rhinitis Overview (06/27/2015): NOS (includes atrophic, obstructive, ulcerative, purulent, and granulomatous) Nasal turbinate hypertrophy KARL (obstructive sleep apnea) Family History Medical History Relation Name Comments Diabetes Father Cancer Mother Diabetes Mother Hypertension Mother Osteoarthritis Mother Stroke Mother Relation Name Status Comments Brother Alive Father Alive Mother Sister Alive Social History Tobacco Use Types Packs/Day Years Used Date Smoking Tobacco: Never Alcohol Use Standard Drinks/Week Comments No 0 (1 standard drink = 0.6 oz pur e alcohol) Comments No Sex and Gender Information Value Date Recorded Sex Assigned at Not on file Legal Sex Female 11:23 PM CDT Gender Identity Not on file Sexual Orientation Not on file Last Filed Vital Signs Vital Sign Reading Time Taken Comments Blood Pressure 146/53 01/08/2016 11:46 AM CDT Pulse 66 01/08/2016 11:46 AM CDT Temperature 36.6 C (97.8 F) 12/12/2015 11:23 AM CDT Respiratory Rate 17 12/12/2015 11:23 AM CDT Oxygen Saturation 92% 01/08/2016 11:46 AM CDT Inhaled Oxygen Concentration - - Weight 129.7 kg (286 lb) 01/08/2016 11:46 AM CDT Height 158.8 cm (5' 2.5) 01/08/2016 11:46 AM CD T Body Mass Index 51.48 01/08/2016 11:46 AM CDT Plan of Treatment Health Maintenance Due Date Last Done Comments DEXA Bone Density 1955 Hepatitis C Virus (HCV) Screening 1955 TdaP Immunization 1955 Cologuard 2003 Immunochemical Fecal Occult Blood 2003 Mammogram 2003 Pneumococcal Immunization (5 0+ years) (1 of 1 - PCV) 2003 Zoster Immunization (1 of 2) 2003 Influenza Immunization (#1) 2024 07/13/2014 SARS-COV-2 Immunization (1 - season) 2024 Colonoscopy 09/21/2025 09/21/2020, 05/09/2015 Colorectal Cancer Screening 09/21/2025 Respiratory Syncytial Virus (RSV) Immunization (Adult) (1 - 1-dose 75+ series) 2028 Hepatitis B Immunization Aged Out No longer eligible based on patient's age to complete this topic Meningococcal Immunization (ACWY) Aged Out No longer eligible b ased on patient's age to complete this topic Rotavirus Immunization Aged Out No lo nger eligible based on patient's age to complete this topic Procedures Procedure Name Priority Date/Time Associated Diagnosis Comments COLONOSCOPY Routine 09/21/2020 from Last 3 Months or Most Recently Relevant to Health Maintenance Results * COLONOSCOPY (09/21/2020) Eleazar Smith DO PROCEDURE/MINOR SURGICAL ORDERA BLES Final Result from Last 3 Months or Most Recently Relevant to Health Maintenance Insurance MEDICAID [place] MEDICARE C [employer] Care Teams Appointment Clerk Relationship Specialty Start Date End Date Ambrocio Núñez MD [address] [place] [address] PCP - General Neurology 07/21/15
--- OUTSIDE RECORDS SUMMARY | 2025-03-07 11:17 | XMS_ITS ---
Author Organization [facility] Address [address] [place], [place] [address] Care Team Providers Care Qual Research Manager Name Role Phone COOPER MELTON Unavailable [phone] Dwayne Núñez Unavailable Unavailable ESTHER AGUSTIN Unavailable [phone] REASON FOR VISIT *General care Encounters Encounter Location Date Provider Diagnosis [address] [id number] 07/29/2024 ESTHER AGUSTIN Plan Of Treatment No Information Progress Notes * Elsa BARBER LDOB:1955 (69 yo F)Acc No.[id number]:07/29/2024 Patient: Gibson OLIVERElsa Provider: Loco AGUSTIN :1955 A ge:69 Y S ex:Female Date:07/29/2024 Address:[address] [place], [place] [address] Subjective: * Chief Complaints: * 1 . *General care. * Medical History: Objective: * Vitals: Assessment: Plan: * Treatment: * Billing Information: * Visit Code: * Procedure Codes: * Electronic signature of INDIGO AGUSTIN DPM on 03/07/2025 at 11:16 AM CDT Sign off status: Pending * Provider: Loco AGUSTIN Date: 09/29/2023 Generated for Nolani ng/Falilianag/eTransmitting on: 0 03/07/2025 11:16 AM CDT
--- OUTSIDE RECORDS SUMMARY | 2025-03-07 11:17 | XMS_ITS | Data Portability ---
Author Organization [facility], [address] [facility] [place] Address [address] [address] Care Team Providers Care Ear Mold Laboratory Technician Name Role Phone ARYA HERNANDEZ Primary Care Provider [phone] Assessment Encounter Date Assessment Date Assessment LastModified by Organization Details LastModified Time 12/28/2024 12/28/2024 The following was discussed with Elsa and her friend: Vertigo: - Worsening - MRI brain completed in [place]. Will obtain records. - VNG impression: 32% weaker response to in the left ear indicating caloric weakness, which is indicative of a peripheral pathology. - Refer to vestibular therapy. - Headaches have resolved. Follow up in 6 months or sooner if needed. I personally spent a total of 30 minutes on the patient on this date of service, including both face to face and non-face to face time. excluding any separately reportable services. The time spent includes medical chart review, any previous imaging, coordination of care, intake and exam and documentation, and face to face time with patient and on the above. [email or web address] Not available 12/28/2024 14:07:37 Plan of Treatment Reminders Order Date Submit Date Provider Last Modified By Organization Details Last Modified Time Details Appointments Establish ed Patient 40.EST 2024 11:20A M Hayley Briggs Not available Not available Not available Lab None recorded. Referral None recorded. Procedures None recorded. Surgeries None recorded. Imaging None recorded. Medication Orders None recorded. Patient TargetsNo targets recorded. Patient InstructionsNo instructions recorded. Reason for Referral None Reported. Results Created Date Observation Date Name Description Value Unit Range Abnormal Flag Note LastModifiedBy Organization Detail LastModifiedTime 12/20/1907/30/2021 imagi ng/di agnos tic resul t No observ ation record ed. [email or web address] Not Available 14:38:55 12/29/19 25 11/23/2024 MRI, brain , w/o contr ast No observ ation record ed. [email or web address] Not Available 2024 13:15:03 Result Notes None recorded. Problems Name Problem SNOMED Code Status Onset Date Resolution Date Notes Provider Name and Address Organization Details Recorded Time Vertigo 853004391 Active 2024 Hayley Briggs, MANAGER DIVISION DNP PULLEY MORTISER OPERATOR [address] [place] [address], [phone], [facility] 5 14:05:15 Chronic daily headache 513823631729397 Active [address] [facility] 4 11:46:13 Problem Notes None recorded. Medical Equipment None Reported. Allergies Allergen ID Allergen Name Allergen Category Reaction Reaction Severity Criticality Documentation Date Start Date Code Code System Note Provider Name and Address Organization Details Recorded Time 6151855 hydrochlo rothiazid e / lisinopri l medicatio n Not available Not available Not available 09/24/20232016 96620 8 RxNorm React ion: Dizzi ness; Cough ; Not Available [facility] 4 03:55:38 6552337 amlodipin e medicatio n dizziness Not available Not available 09/24/20232016 99510 RxNorm React ion: Dizzi ness; Not Available [facility] 4 03:55:39 495224 liragluti de medicatio n myalgias (muscle pain) Not available Not available 09/22/20232016 57260 8 RxNorm React ion: Myalg ia; Not Available [facility] 4 23:05:25 788859 [place] medicatio n myalgias (muscle pain) Not available Not available 09/22/20232016 30702 1 RxNorm React ion: Myalg ia; Not Available [facility] 4 23:05:26 498892 ampicilli n medicatio n rash Not available Not available 09/22/20232016 733 RxNorm React ion: Rash; Not Available [facility] 4 23:05:26 Vitals Date Recorded Body height Body mass index (BMI) Body weight Heart rate Oxygen saturation Oxygen saturation in Arterial blood by Pulse oximetry Systolic And Diastolic Provider Name and Address Organization Details Last Updated DateTime 5 158.75 cm 39.5 kg/m2 90569.8 8 g 70 /min 95 % 95 % 122/64 mm[Hg] Catalina Stilld [facility] 5 12:52:40 Social History None recorded. Functional Status None recorded. Mental Status None recorded. Family History Nothing Reported. Medical History No medical history recorded. Gynecological HistoryNo gynecological history recorded. Obstetrics History GPAL:G 0 P 0 0 0 0 Past Encounters Encounter ID Performer Location Encounter Start Date Encounter Closed Date Diagnosis/Indication Diagnosis SNOMED-CT Code Diagnosis ICD10 Code Diagnosis Note [id number] Hayley Briggs APRN DNP PULLEY MORTISER OPERATOR [facility] [address] [place] [address] 12/28/2024 12:34:35 12/28/2024 14:00:31 Vertigo 178633454 R42 Health Concerns Section Related Observation LastModified by Organization Detai ls LastModified Time None Recorded Concern Status LastModified by Organization Details LastModified Time None Recorded Advance Directives Directive None Recorded Payers Insurance Date Sequence Insurance Name Policy Number Policy Oates Covered Member ID Oates Member ID Guarantor Name 12/29/2024 1 [facility] (MEDICARE REPLACEMENT/A DVANTAGE - PPO) [id number] Elsa Duong [id number] Elsa Duong 12/28/2024 2 [place] [employer] Elsa Duong [id number] Elsa Duong Notes Date Note Type Note Provider Name and Address Organization Details Recorded Time 12/28/2024 text/html Kaylin Duong is a 69-year-old female presenting to the clinic with her friend for follow-up regarding dizziness. She was seen approximately [address] Soto regarding dizziness and headaches. She reports that her headaches have essentially resolved since she has been see by us. Her main concern continues to be dizziness which is worsening per her report. She states that she continues to have dizziness that comes and goes daily. She describes been uncoordinated sensation that will make her travel right or left iwhen walking. She also describes room spinning sensations that can last several seconds to minutes. She often has to take breaks to collect herself. She does endorse falls. She ambulates using a cane and states she is generally unsteady on her feet. She has a history of bilateral ringing in the ears and bilateral hearing loss for which she wears hearing aids. Last year, an MRI of the brain with and without contrast was ordered. She states that she does have an allergy to contrast and therefore MRI of the brain was completed without contrast in [place]. We do not have records but will call to obtain them today. She reports that she did have a VNG completed shortly after her visit with Dr. Soto. The impression of this study showed a 32% weaker response in the left ear indicating unilateral caloric weakness. This finding is indicative of a peripheral pathology. She states that she never received these results. She states her primary care did not have results of this study either. She has no other questions or concerns today. Hayley Briggs APRN DNP PULLEY MORTISER OPERATOR [address] [place] [address], [phone], [facility] 12/28/2024 14:08:18 OBGyn Episode No OBEpisode recorded.
--- OUTSIDE RECORDS SUMMARY | 2025-03-07 11:17 | XMS_ITS | Clinical Summary ---
Author Organization [facility] Address [address] [place] [address] Care Team Providers Care Religious Assistant Name Role Phone Dwayne Núñez MD Primary Care Provider [phone] Allergies Active Allergy Reactions Criticality Noted Date [...] Dentist TMJ dysfunction discussed and Handout provided Surgical History Surgery Date Site/Laterality Comments OTHER SURGICAL HISTORY bi polar: sleep apnea OTHER SURGICAL HISTORY tics BACK SURGERY Back surgery CARPAL TUNNEL RELEASE Carpal tunnel release HYSTERECTOMY Hysterectomy Medical History Medical History Date Comments Hx Other Medical bi polar Hypertension Hypertension Hyperlipidemia Hyperlipidemia Asthma Asthma Hx Other Medical rt foot surgery Diabetes mellitus (HCC) Diabetes Malignant neoplasm of cervix (HCC) Cancer, cervical Social History Tobacco Use Types Packs/Day Years Used Date Smoking Tobacco: Never Comments Unknown Sex and Gender Information Value Date Recorded Sex Assigned at Not on file Legal Sex Female 1:14 AM PRESSURE TANK OPERATOR Gender Identity Not on file Sexual Orientation Not on file Obstetrics History Last Filed Vital Signs Vital Sign Reading Time Taken Comments Blood Pressure 128/73 02/12/2022 10:40 AM CDT Pulse 62 02/12/2022 10:40 AM CDT Temperature 36.6 C (97.9 F) 09/03/2021 4:36 PM PRESSURE TANK OPERATOR Respiratory Rate 18 02/12/2022 10:40 AM CDT Oxygen Saturation 99% 02/12/2022 10:40 AM CDT Inhaled Oxygen Concentration - - Weight 82.8 kg (182 lb 9.6 oz) 02/12/2022 10:40 AM CDT Height 157.5 cm (5' 2) 02/12/2022 10:40 AM CDT Body Mass Index 33.4 02/12/2022 10:40 AM CDT Plan of Treatment Not on file Medical Devices Implanted Type Area Religious Assistant Device Identifier Shelf Expiration Date Model / Serial / Lot Rt Total Knee Arthroplasty- Implanted:05/29 (Quantity not on file) Right: Knee Insurance [facility] MEDICARE ADVANTAGE Care Teams Religious Assistant Relationship Specialty Start Date End Date Dwayne Núñez MD PCP - General 09/03/21
--- OUTSIDE RECORDS SUMMARY | 2025-03-07 11:17 | XMS_ITS | Patient Health Record ---
Author Organization [facility] Address [address] [place], [place] [id number] Care Team Providers Care Eyeglass Cutter Name Role Phone COOPER MELTON Unavailable [phone] Dwayne Núñez Unavailable Unavailable COOPER CELIS Unavailable [phone] ESTHER AGUSTIN Unavailable [phone] Allergies Allergen (clinical drug ingredient) Drug/Non Drug Allergy documented on EMR Reaction Allergy Type Onset Date Status Contrast Dye (uncoded) Unknown Allergy Active ampicillin Ampicillin Unknown Drug Allergy Activ e Latex Latex Unknown Allergy Active Reason For Referral No Information Medications Medication SIG (Take, Route, Frequency, Duration) Notes Start Date End Date Status Clotrimazole-Betamethasone 1-0.05 % 1 application Externally Twice a day 04/15/2024 Active Encounters Encounter Location Date Provider Diagnosis [address] [id number] 04/15/2024 ESTHER AGUSTIN Tinea pedis B35.3 ; Tinea unguium B35.1 ; Unspecified atherosclerosis of [place] arteries of extremities, bilateral legs I70.203 ; Pain in right toe(s) M79.674 ; Pain in left toe(s) M79.675 ; Other hammer toe(s) (acquired), right foot M20.41 ; Other hammer toe(s) (acquired), left foot M20.42 and Acquired keratosis [keratoderma] palmaris et plantaris L85.[address] [id number] 05/20/2024 ESTHER AGUSTIN Tinea pedis B35.3 ; Unspecified atherosclerosis of [place] arteries of extremities, bilateral legs I70.203 ; Pain in right toe(s) M79.674 ; Pain in left toe(s) M79.675 ; Other hammer toe(s) (acquired), right foot M20.41 ; Other hammer toe(s) (acquired), left foot M20.42 and Acquired keratosis [keratoderma] palmaris et plantaris L85.1 [place] [place], [place] [id number] 07/29/2024 ESTHER AGUSTIN Tinea pedis B35.3 ; Unspecified atherosclerosis of [place] arteries of extremities, bilateral legs I70.203 ; Pain in right toe(s) M79.674 ; Pain in left toe(s) M79.675 ; Other hammer toe(s) (acquired), right foot M20.41 ; Other hammer toe(s) (acquired), left foot M20.42 and Acquired keratosis [keratoderma] palmaris et plantaris L85.1 Assessments Encounter Date Diagnosis (ICD Code) Assessment Notes Treatment Notes Treatment Clinical Notes Section Notes 04/15/2024 Tinea unguium (ICD-10 - B35.1) Aseptic debridement of elongated thickened nails x 10 using sterile nippers, nails were debrided in length and thickness by 30% utilizing a nail nipper without incident. The patient was educated regarding all treatment options that include topical and oral antifungal treatments. I discussed the options of taking a sample of the nail to confirm diagnosis. Nail clippings were not sent for pathology analysis. The patient was educated why and how the fungal infection evolved in their feet and the patient was given information regarding how to prevent further infection. The patient was told to keep feet dry and change socks. The patient was told to be careful with old shoes and excessive sweating. The patient was educated regarding both OTC and prescription treatments. 04/15/2024 Tinea pedis (ICD-10 - B35.3) The patient was educated why and how the fungal infection evolved in their feet and the patient was given information regarding how to prevent further infection. The patient was told to keep feet dry and change socks. The patient was told to be careful with old shoes and excessive sweating. The patient was educated regarding both OTC and prescription treatments. Rx lotrisone. 05/20/2024 Tinea pedis (ICD-10 - B35.3) The patient was educated why and how the fungal infection evolved in their feet and the patient was given information regarding how to prevent further infection. The patient was told to keep feet dry and change socks. The patient was told to be careful with old shoes and excessive sweating. The patient was educated regarding both OTC and prescription treatments. Continue with use of lotrisone. 05/20/2024 Unspecified atherosclerosis of [place] arteries of extremities, bilateral legs (ICD-10 - I70.203) Patient educated on risks and aggravating factors of PVD, including conservative treatment options such as a diet and exercise regimen to aid in slowing progression of vascular disease 07/29/2024 Tinea pedis (ICD-10 - B35.3) The patient was educated why and how the fungal infection evolved in their feet and the patient was given information regarding how to prevent further infection. The patient was told to keep feet dry and change socks. The patient was told to be careful with old shoes and excessive sweating. The patient was educated regarding both OTC and prescription treatments. Continue with use of lotrisone. 07/29/2024 Unspecified atherosclerosis of [place] arteries of extremities, bilateral legs (ICD-10 - I70.203) Patient educated on risks and aggravating factors of PVD, including conservative treatment options such as a diet and exercise regimen to aid in slowing progression of vascular disease 05/20/2024 Pain in right toe(s) (ICD-10 - M79.674) 07/29/2024 Pain in right toe(s) (ICD-10 - M79.674) 04/15/2024 Unspecified atherosclerosis of [place] arteries of extremities, bilateral legs (ICD-10 - I70.203) Patient educated on risks and aggravating factors of PVD, including conservative treatment options such as a diet and exercise regimen to aid in slowing progression of vascular disease 07/29/2024 Pain in left toe(s) (ICD-10 - M79.675) 05/20/2024 Pain in left toe(s) (ICD-10 - M79.675) 04/15/2024 Pain in right toe(s) (ICD-10 - M79.674) 04/15/2024 Pain in left toe(s) (ICD-10 - M79.675) 05/20/2024 Other hammer toe(s) (acquired), right foot (ICD-10 - M20.41) The patient was educated regarding how to mechanically stabilize their deformity. The patient was given education about shoe recommendations specific for the condition. The patient was educated about custom orthotics and how appropriate shoes and orthotics can prevent further worsening of the deformity. The patient was educated about how bad shoe habits can worsen the condition. NSAIDS, P.T., injections and other conservative treatments were discussed. Both surgical and non surgical treatments were discussed, but conservative options were emphasized. 07/29/2024 Other hammer toe(s) (acquired), right foot (ICD-10 - M20.41) The patient was educated regarding how to mechanically stabilize their deformity. The patient was given education about shoe recommendations specific for the condition. The patient was educated about custom orthotics and how appropriate shoes and orthotics can prevent further worsening of the deformity. The patient was educated about how bad shoe habits can worsen the condition. NSAIDS, P.T., injections and other conservative treatments were discussed. Both surgical and non surgical treatments were discussed, but conservative options were emphasized. 07/29/2024 Other hammer toe(s) (acquired), left foot (ICD-10 - M20.42) 05/20/2024 Other hammer toe(s) (acquired), left foot (ICD-10 - M20.42) 04/15/2024 Other hammer toe(s) (acquired), right foot (ICD-10 - M20.41) The patient was educated regarding how to mechanically stabilize their deformity. The patient was given education about shoe recommendations specific for the condition. The patient was educated about custom orthotics and how appropriate shoes and orthotics can prevent further worsening of the deformity. The patient was educated about how bad shoe habits can worsen the condition. NSAIDS, P.T., injections and other conservative treatments were discussed. Both surgical and non surgical treatments were discussed, but conservative options were emphasized. 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 After removal of overlying extensive hyperkeratosis, healthy tissue was noted and care was taken to assure that no undermining or probing was present. It should be noted that no probing was noted and no infection or drainage was noted. 05/20/2024 Other The patient was educated regarding all treatment options that include topical and oral antifungal treatments. I discussed the options of taking a sample of the nail to confirm diagnosis. Nail clippings were not sent for pathology analysis. The patient was educated why and how the fungal infection evolved in their feet and the patient was given information regarding how to prevent further infection. The patient was told to keep feet dry and change socks. The patient was told to be careful with old shoes and excessive sweating. The patient was educated regarding both OTC and prescription treatments. Plan Of Treatment No Information Insurance Providers Payer Name Payer Address Payer Phone Subscriber Number Group Number Insured Name Patient Relationship to Insured Coverage Start Date Coverage End Date [facility] [address] [address] [place] [address] [id number] Elsa Duong Self - patient is the insured Medical (General) History Medical History History ICD Code acid reflux artificial joint neuropathy Asthma/Bronchitis Cancer (type of cancer) Leg/Feet cramps Arthritis Bladder infections Thyroid Disease angina Back Trouble Diabetic Psychiatric Disorder hypertension
[2025-03-07 11:46] LABS: MALB Creatinine Ratio 17.3 mg/g (0-30)
[2025-03-07 12:32] LABS: Alanine Aminotransferase 15 U/L (6-35); Albumin Level 3.4 g/dL (3.5-5.1); Alkaline Phosphatase 74 U/L (38-126); Anion Gap 1 mmol/L (4-12); Aspartate Amino Transferase 27 U/L (14-36); Bilirubin,Total 0.4 mg/dL (0.2-1.3); Blood Urea Nitrogen 9 mg/dL (7-17); Calcium 9.1 mg/dL (8.4-10.2); Carbon Dioxide 31 mmol/L (22-30); Chloride 107 mmol/L (98-107); Cholesterol 142 mg/dL (0-200); Estimated Glomerular Filt Rate > 60; Glucose 100 mg/dL (65-110); HDL Direct 49 mg/dL; Osmolality Calculated 286 mOsm/kg (285-295); Potassium 3.9 mmol/L (3.4-5.0); Sodium 139 mmol/L (137-145); Total Protein 6.3 g/dL (6.3-8.2); Triglycerides 117 mg/dL (<150)
[2025-03-07 12:50] LABS: Free T4 Free Thyroxine 1.16 ng/dL (0.78-2.19)
[2025-03-07 13:03] LABS: Thyroid Stimulating Hormone 2.100 uIU/mL (0.465-4.680)
[2025-03-07 13:24] LABS: Vitamin B12 658.0 pg/mL (239-931)
== END 2025-03-07 11:11 | disposition home or self-care (01) ==
LOC: CHSLAB 11:12
PROVIDERS: PCP Internal Medicine; Visit Provider Nurse Practitioner Family
DX: E04.9 Nontoxic goiter, unspecified (principal); E11.65 Type 2 diabetes mellitus with hyperglycemia; Z79.4 Long term (current) use of insulin; E78.5 Hyperlipidemia, unspecified; E55.9 Vitamin D deficiency, unspecified
CPT/HCPCS: 36415; 80053; 80061; 82043; 82306; 82607; 84439; 84443

== ENCOUNTER 2025-06-10 11:00 | Outpatient (RCR) | payer MEDICARE, MEDICAID, SELFPAY ==
[2025-03-09 14:51] VITALS: BP 122/69; PULSE 66; RESP 16; O2SAT 97
--- NOTE | 2025-06-14 09:49 | PCCPR ---
PHQ-9 questionnaire was re-assessed for Elsa on Friday06/10/25. Elsa scored a 12 on admission and the re-assessment worsened to a 16. Notification was sent to her PCP, Dr. Núñez, and a call was placed to her mental health provider at [facility] in [place], [place]. Elsa reports that she has been feeling more depressed d/t her health status. Elsa further stated that she would not be attending her session on Wednesday 06/13 because she has an appointment with her mental health provider, Jorge L at 11am. However, phone was just received from Susu at the [facility], she reports that Elsa does not have any appointments scheduled with them and she has not been seen since February. Verified that Elsa was a patient, and their provider does prescribe Elsa's psychotropic medications. Susu states they have left a message for Elsa and will try to get her in to be seen as soon as possible. Her provider name was clarified to be, Ольга Rincon [facility]. Fax number was the [facility] provided: [phone]. Will fax a copy of the PHQ-9 questionnaire.
== END 2025-07-07 23:59 | disposition home or self-care (01) ==
PROVIDERS: PCP Internal Medicine; Referring Provider Internal Medicine; Visit Provider Internal Medicine
DX: Z98.61 Coronary angioplasty status (principal)
CPT/HCPCS: 93798

== ENCOUNTER 2025-06-14 11:44 | Outpatient (CLI) | payer MEDICARE, MEDICAID, SELFPAY ==
--- OUTSIDE RECORDS SUMMARY | 2024-06-17 09:00 | XMS_ITS ---
Author Organization [facility] Address [address] [place], [place] [id number] Care Team Providers Care Bone Drier Operator Name Role Phone COOPER MELTON Unavailable [phone] Dwayne Núñez Unavailable Unavailable ESTHER AGUSTIN Unavailable [phone] REASON FOR VISIT *General care Encounters Encounter Location Date Provider Diagnosis [address] [id number] 06/17/2024 ESTHER AGUSTIN Plan Of Treatment No Information Progress Notes * Elsa BARBER LDOB:1955 (70 yo F)Acc No.[id number]:06/17/2024 Patient: Gibson OLIVERElsa Provider: Loco AGUSTIN :1955 A ge:69 Y S ex:Female Date:06/17/2024 Address:[address] [place], [place] [id number] Subjective: * Chief Complaints: * 1 . *General care. * Medical History: Objective: * Vitals: Assessment: Plan: * Treatment: * Billing Information: * Visit Code: * Procedure Codes: * Electronic signature of INDIGO AGUSTIN DPM on 06/14/2025 at 02:38 PM CDT Sign off status: Pending * Provider: Loco AGUSTIN Date: Generated for Jagruti ng/Faalhaji/eTransmitting on: 02:38 PM CDT
--- OUTSIDE RECORDS SUMMARY | 2024-07-29 09:00 | XMS_ITS ---
Author Organization [facility] Address [address] [place], [place] [address] Care Team Providers Care Referral Coordinator Name Role Phone COOPER MELTON Unavailable [phone] Dwayne Núñez Unavailable Unavailable ESTHER AGUSTIN Unavailable [phone] REASON FOR VISIT *General care Encounters Encounter Location Date Provider Diagnosis [address] [id number] 07/29/2024 ESTHER AGUSTIN Plan Of Treatment No Information Progress Notes * Elsa BARBER LDOB:1955 (70 yo F)Acc No.[id number]:07/29/2024 Patient: Gibson OLIVERElsa Provider: Lcoo AGUSTIN :1955 A ge:69 Y S ex:Female Date:07/29/2024 Address:[address] [place], [place] [id number] Subjective: * Chief Complaints: * 1 . *General care. * Medical History: Objective: * Vitals: Assessment: Plan: * Treatment: * Billing Information: * Visit Code: * Procedure Codes: * Electronic signature of INDIGO AGUSTIN DPM on 06/14/2025 at 02:39 PM CDT Sign off status: Pending * Provider: Loco AGUSTIN Date: 1 09/29/2023 Generated for Jagruti ng/Faalhaji/eTransmitting on: 02:39 PM CDT
--- OUTSIDE RECORDS SUMMARY | 2024-10-14 08:50 | XMS_ITS ---
Author Organization [facility] Address [address] [place], [place] [address] Care Team Providers Care Special Procedure Technologist Name Role Phone COOPER MELTON Unavailable [phone] Dwayne Núñez Unavailable Unavailable SNOOK, COOPER Unavailable [phone] REASON FOR VISIT *General care Encounters Encounter Location Date Provider Diagnosis [address] [id number] 10/14/2024 COOPER CELIS Plan Of Treatment No Information Progress Notes * Elsa BARBER LDOB:1955 (70 yo F)Acc No.[id number]:10/14/2024 Patient: Gibson OLIVER Elsa Ly Provider: Annmarie Celis DPM :1955 A ge:69 Y S ex:Female Date:10/14/2024 Address:[address] [place] [address] [id number] Subjective: * Chief Complaints: * 1 . *General care. * Medical History: Objective: * Vitals: Assessment: Plan: * Treatment: * Billing Information: * Visit Code: * Procedure Codes: * Electronic signature of COOPER CELIS DPM on 06/14/2025 at 02:39 PM CDT Sign off status: Pending * Provider: Annmarie Celis DPM Date: 0 10/14/2024 Generated for Printi ng/Faxing/eTransmitting on: 1 02:39 PM CDT
--- NOTE | ~2025-06-14 | DEXA_ITS ---
Bone Density Report Name: STAN BARBER Age: 70 Sex: Female Ethnicity: White Date of : 1955 Indication: postmenopausal; screening for osteoporosis; height loss; hysterectomy; Referring Provider: Dwayne Núñez Study: Bone densitometry was performed. Exam Date: June 14, 2025 Accession number: [id number] Bone Density: Region BMD T-score Z-score Classification AP Spine(L1-L4) 0.882 -1.5 0.7 Osteopenia Femoral Neck (Left) 0.679 -1.5 0.4 Osteopenia Total Hip (Left) 0.945 0.0 1.6 Normal Femoral Neck (Right) 0.644 -1.8 0.1 Osteopenia Total Hip (Right) 0.871 -0.6 1.0 Normal Femoral Neck Mean 0.662 -1.7 0.2 Osteopenia Total Hip Mean 0.908 -0.3 1.3 Normal World Health Organization criteria for BMD impression classify patients as: Normal (T-score at or above -1.0), Osteopenia (T-score between -1.0 and -2.5), or Osteoporosis (T-score at or below -2.5). 10-year Fracture Risk(1): Major Osteoporotic Fracture 10% Hip Fracture 1.9% Reported Risk Factors: [place] (), Neck BMD=0.644, BMI=37.3 (1) FRAX(R) Version 3.08. Fracture probability calculated for an untreated patient. Fracture probability may be lower if the patient has received treatment. Clinical Information Provided by Patient: Has used the following medications: Calcium, daily multivitamin Has the following medical conditions: Hysterectomy Patient maximum height was 63 Menopause Age: 40 No regular weight bearing exercise Does not regularly consume dairy products Onset of menses at age 9 Number of children 4 Impression: The patient has low bone mass, based on the Right Femoral Neck T-score. Discussion: BONE DENSITY IS LOW AT ONE OR MORE SKELETAL SITES. This patient's lowest T-score is low at one or more skeletal sites. It meets the World Health Organization's (WHO) criteria for ?low bone mass? (T-score between -1.0 and -2.5). The patient's 10-year risk of fracture as calculated by FRAX is less than the threshold where pharmacological therapy is recommended by the National Osteoporosis Foundation (NOF). However, all treatment decisions require clinical judgment and consideration of individual patient factors, including patient preferences, comorbidities, previous drug use, risk factors not captured in the FRAX model (e.g., frailty, falls, vitamin D deficiency, increased bone turnover, interval significant decline in bone density) and possible under or overestimation of fracture risk by FRAX. The patient should follow a healthful lifestyle (good nutrition with adequate calcium and vitamin D, and appropriate weight-bearing exercise). Follow-Up: Consider repeating this study in 2 to 3 years to reassess this patient's status, or sooner if there is some new clinical indication. Reported by: LEO on 06/14/2025 12:35:00 PM. Reviewed, dictated and finalized at location A.
--- NOTE | ~2025-06-14 | MM_ITS ---
EXAMINATION: MM screening [facility] BI w ted HISTORY: Screening TECHNIQUE: Craniocaudal and mediolateral oblique 3-D tomosynthesis images were obtained and synthetic 2-D images were generated. CAD analysis was submitted and interpreted. COMPARISON: Comparison to multiple prior studies sequentially, with oldest reviewed study dated 09/14/2018. BREAST PARENCHYMAL COMPOSITION: Not dense: There are scattered areas of fibroglandular density. FINDINGS: There is no evidence of suspicious mass, calcification, or architectural distortion to suggest malignancy in either breast. There has been no suspicious interval change. IMPRESSION: 1. No mammographic evidence of malignancy. 2. Recommend routine screening mammography in one year. BI-RADS Category 1: Negative Reviewed, dictated and finalized at location O.
--- OUTSIDE RECORDS SUMMARY | 2025-06-14 14:39 | XMS_ITS | Clinical Summary ---
Author Organization [facility] Address [address] [place] [address] Care Team Providers Care Armed Security Guard Name Role Phone Dwayne Núñez MD Primary Care Provider [phone] Allergies Active Allergy Reactions Criticality Noted Date [...] Other Medical rt foot surgery Diabetes mellitus Diabetes Malignant neoplasm of cervix (HCC) Cancer, cervical Social History Tobacco Use Types Packs/Day Years Used Date Smoking Tobacco: Never Comments Unknown Sex and Gender Information Value Date Recorded Sex Assigned at Not on file Legal Sex Female 1:14 AM CARDIAC NURSE SPECIALIST Gender Identity Not on file Sexual Orientation Not on file Obstetrics History Last Filed Vital Signs Vital Sign Reading Time Taken Comments Blood Pressure 128/73 02/12/2022 10:40 AM CDT Pulse 62 02/12/2022 10:40 AM CDT Temperature 36.6 C (97.9 F) 09/03/2021 4:36 PM CARDIAC NURSE SPECIALIST Respiratory Rate 18 02/12/2022 10:40 AM CDT Oxygen Saturation 99% 02/12/2022 10:40 AM CDT Inhaled Oxygen Concentration - - Weight 82.8 kg (182 lb 9.6 oz) 02/12/2022 10:40 AM CDT Height 157.5 cm (5' 2) 02/12/2022 10:40 AM CDT Body Mass Index 33.4 02/12/2022 10:40 AM CDT Plan of Treatment Not on file Medical Devices Implanted Type Area Cost And Risk Analysis Manager Device Identifier Shelf Expiration Date Model / Serial / Lot Rt Total Knee Arthroplasty- Implanted:05/29 (Quantity not on file) Right: Knee Insurance [facility] MEDICARE ADVANTAGE [facility] Address: [facility] [address] [place] [address] [facility] MEDICARE ADVANTAGE Care Teams Armed Security Guard Relationship Specialty Start Date End Date Dwayne Núñez MD PCP - General 09/03/21
--- OUTSIDE RECORDS SUMMARY | 2025-06-14 14:40 | XMS_ITS | Clinical Summary ---
Author Organization [facility] Address [address] [place] [address] Phone Care Team Providers Care Science And Operations Officer Name Role Phone Ambrocio Núñez MD Primary Care Provider [phone] Allergies Active Allergy Reactions Criticality Noted Date [...] Health Maintenance Due Date Last Done Comments Hepatitis C Virus (HCV) Screening 1955 TdaP Immunization 1955 Cologuard 1998 Immunochemical Fecal Occult Blood 1998 Medicare Initial AWV [id number] 09/25/1999 Pneumococcal Immunization (5 0+ years) (1 of 1 - PCV) 2003 Zoster Immunization (1 of 2) 2003 Influenza Immunization (#1) 2025 07/13/2014 SARS-COV-2 Immunization (1 - season) 2025 Colonoscopy 09/21/2025 09/21/2020, 05/09/2015 Colorectal Cancer Screening 09/21/2025 Respiratory Syncytial Virus (RSV) Immunization (Adult) (1 - 1-dose 75+ series) 2028 Hepatitis B Immunization Aged Out No longer eligible based on patient's age to complete this topic Human Papillomavirus (HPV) Immunization Aged Out No longer eligible b ased [...] MEDICAID [place] MEDICARE C AETNA Care Teams Science And Operations Officer Relationship Specialty Start Date End Date Ambrocio Núñez MD [address] [place] [address] PCP - General Neurology 07/21/15
== END 2025-06-14 11:45 | disposition home or self-care (01) ==
LOC: CHSIMG 11:45
PROVIDERS: PCP Internal Medicine; Visit Provider Internal Medicine
DX: Z12.31 Encounter for screening mammogram for malignant neoplasm of breast (principal); Z78.0 Asymptomatic menopausal state; M85.89 Other specified disorders of bone density and structure, multiple sites
CPT/HCPCS: 77063; 77067; 77080

== ENCOUNTER 2025-06-25 10:43 | Outpatient (CLI) | payer MEDICARE, MEDICAID, SELFPAY ==
--- NOTE | ~2025-06-25 | MR_ITS ---
EXAMINATION: MR brain/brain stem wo con DATE: 06/25/2025 14:33 INDICATION: Memory loss. TECHNIQUE: Magnetic resonance imaging (MRI) of the brain and brainstem was performed without intravenous contrast. COMPARISON: None. FINDINGS: There is no intracranial hemorrhage, acute infarction, or abnormal intracranial mass lesion. There are scattered areas of nonspecific increased T2- weighted signal intensity in the cerebral white matter. The ventricles are normal in size. The orbits are normal. The paranasal sinuses are clear. The mastoid air cells are normal. IMPRESSION: 1. Moderate nonspecific cerebral white matter disease, which likely represents chronic small vessel ischemic disease. Reviewed, dictated and finalized at location E.
--- OUTSIDE RECORDS SUMMARY | 2025-06-25 10:48 | XMS_ITS | Clinical Summary ---
Author Organization [facility] Address [address] [place] [address] Care Team Providers Care Utility Tractor Operator Name Role Phone None, Provider MD Primary Care Provider Unavaila ble Allergies Active Allergy Reactions Criticality Noted Date Comments Gadolinium Derivatives Anaphylaxis High 09/03/2021 ANAPHYLACTIC REACTION WHILE HAVING A CARDIAC MRI @ [facility] ON 09-03-21, NOTED IN EPIC Active Problems Problem Noted Date Diagnosed Date Chronic headache 01/05/2025 Social History Tobacco Use Types Packs/Day Years Used Date Smoking Tobacco: Never Assessed Comments Unknown Sex and Gender Information Value Date Recorded Sex Assigned at Not on file Legal Sex Female 9:26 PM CDT Gender Identity Not on file Sexual Orientation Not on file Plan of Treatment Health Maintenance Due Date Last Done Comments Colorectal Cancer Screening Colonoscopy (10 Years) 1955 Hepatitis C 1971 DTaP, Tdap and Td Vaccines ( 1 - Tdap) 1972 Mammogram Screening 1993 Pneumococcal Vaccine: 50+ Ye ars (1 of 1 - PCV) 2003 Zoster Vaccines (1 of 2) 2003 Annual Medicare Wellness Visit 2018 Dexa Scan (General) 2018 COVID-19 Vaccine ( - 2024-2 6 season) 2025 Influenza Adult (#1) 2025 RSV Immunization or 60+ Years (1 - 1-dose 75+ series) 2028 Hepatitis A Vaccines Aged Out No long er eligible based on patient's age to complete this topic Meningococcal B Vaccine Aged Out No l onger eligible based on patient's age to complete this topic Meningococcal Vaccine Aged Out No nina kannan eligible based on patient's age to complete this topic RSV Immunizations Under 20 Months Aged Out No longer eligible based on patient's age to complete this topic Insurance [facility] MEDICARE MEDICAID Care Teams Utility Tractor Operator Relationship Specialty Start Date End Date None, Provider, PCP - General UNKNOWN PHYSICIAN SPECIALTY 06/20/22
--- OUTSIDE RECORDS SUMMARY | 2025-06-25 10:48 | XMS_ITS | Clinical Summary ---
Author Organization [facility] Address [address] [place] [address] Phone Care Team Providers Care Gun Perforator Name Role Phone Ambrocio Núñez MD Primary Care Provider [phone] Allergies Active Allergy Reactions Criticality Noted Date [...] Relevant to Health Maintenance [place] [address] MEDICARE C AETNA Care Teams Gun Perforator Relationship Specialty Start Date End Date Ambrocio Núñez MD [address] [place] [address] PCP - General Neurology 07/21/15
--- OUTSIDE RECORDS SUMMARY | 2025-06-25 10:48 | XMS_ITS | Clinical Summary ---
Author Organization [facility] Address [address] [place] [address] Care Team Providers Care Plug Drill Operator Name Role Phone Dwayne Núñez MD Primary Care Provider [phone] Allergies Active Allergy Reactions Criticality Noted Date [...] on file Legal Sex Female 1:14 AM RDA Gender Identity Not on file Sexual Orientation Not on file Obstetrics History Last Filed Vital Signs Vital Sign Reading Time Taken Comments Blood Pressure 128/73 02/12/2022 10:40 AM CDT Pulse 62 02/12/2022 10:40 AM CDT Temperature 36.6 C (97.9 F) 09/03/2021 4:36 PM RDA Respiratory Rate 18 02/12/2022 10:40 AM CDT Oxygen Saturation 99% 02/12/2022 10:40 AM CDT Inhaled Oxygen Concentration - - Weight 82.8 kg (182 lb 9.6 oz) 02/12/2022 10:40 AM CDT Height 157.5 cm (5' 2) 02/12/2022 10:40 AM CDT Body Mass Index 33.4 02/12/2022 10:40 AM CDT Plan of Treatment Not on file Medical Devices Implanted Type Area Business Employment Specialist Device Identifier Shelf Expiration Date Model / Serial / Lot Rt Total Knee Arthroplasty- Implanted:05/29 (Quantity not on file) Right: Knee Insurance [facility] MEDICARE ADVANTAGE [facility] MEDICARE ADVANTAGE Care Teams Plug Drill Operator Relationship Specialty Start Date End Date Dwayne Núñez MD PCP - General 09/03/21
--- OUTSIDE RECORDS SUMMARY | 2025-06-25 10:48 | XMS_ITS | Data Portability ---
Author Organization [facility], [address] [place] [address] [place] ([place]) Address [address] [address] Care Team Providers Care Toolroom Keeper Name Role Phone ARYA HERNANDEZ Primary Care Provider Assessment Encounter Date Assessment Date Assessment LastModified by Organization Details LastModified Time 12/28/2024 12/28/2024 The following was discussed with Elsa and her friend: Vertigo: - Worsening - MRI brain completed in [place]. Will obtain records. - VNG impression: 32% [...] time with patient and on the above. [email or web address] Not available 12/28/2024 14:07:37 Plan of Treatment [...] Name and Address Organization Details Recorded Time Chronic daily headache 934320894327982 Active 2023 Laura Maximiliano [facility] 4 11:46:13 Vertigo 281640894 Active 2024 Hayley Briggs, CASH ACCOUNTANT DNP [employer]OWER E[employer]OR HELPER [address] [place] [address], [id number] [facility] 5 14:05:15 Problem Notes None recorded. Medical Equipment None Reported. Allergies Allergen ID Allergen Name Allergen Category Reaction Reaction Severity Criticality Documentation Date Start Date Code Code System Note Provider Name and Address Organization Details Recorded Time [id number] hydrochlo rothiazid e / lisinopri l medicatio n Not available Not available Not available 09/24/20232016 24579 8 RxNorm React ion: Dizzi ness; Cough ; Not Available [facility] 4 03:55:38 3321461 amlodipin e medicatio n dizziness Not available Not available 09/24/20232016 78755 RxNorm React ion: Dizzi ness; Not Available [facility] 4 03:55:39 381033 liragluti de medicatio n myalgias (muscle pain) Not available Not available 09/22/20232016 78942 8 RxNorm React ion: Myalg ia; Not Available [facility] 4 23:05:25 547245 [place]etta medicatio n myalgias (muscle pain) Not available Not available 09/22/20232016 77166 1 RxNorm React ion: Myalg ia; Not Available [facility] 4 23:05:26 303683 ampicilli n medicatio n rash Not available Not available 09/22/20232016 733 RxNorm React ion: Rash; Not Available [facility] 4 23:05:26 Vitals Date Recorded Body height Body mass index (BMI) Body weight Heart rate Oxygen saturation Oxygen saturation in Arterial blood by Pulse oximetry Systolic And Diastolic Provider Name and Address Organization Details Last Updated DateTime 5 158.75 cm 39.5 kg/m2 06471.8 8 g 70 /min 95 % 95 % 122/64 mm[Hg] Catalina Elam [facility] 5 12:52:40 Social History None recorded. Functional Status None recorded. Mental Status None recorded. Family History Nothing Reported. Medical History No medical history recorded. Gynecological HistoryNo gynecological history recorded. Obstetrics History GPAL:G 0 P 0 0 0 0 Past Encounters Encounter ID Performer Location Encounter Start Date Encounter Closed Date Diagnosis/Indication Diagnosis SNOMED-CT Code Diagnosis ICD10 Code Diagnosis IMO Codes Diagnosis Note [id number] Hayley Briggs APRN DNP [employer] [facility] [address] [place] [address] 12/28/2024 12:34:35 12/28/2024 14:00:31 Vertigo 445782993 R42 60139 Health Concerns Section Related Observation LastModified by Organization Detai ls LastModified Time None Recorded Concern Status LastModified by Organization Details LastModified Time None Recorded Advance Directives Directive None Recorded Payers Insurance Date Sequence Insurance Name Policy Number Policy Oates Covered Member ID Oates Member ID Guarantor Name 06/23/2025 1 [facility] (MEDICARE REPLACEMENT/A DVANTAGE - PPO) [id number] Elsa Duong [id number] Elsa Duong 06/24/2025 2 [place] [employer] Elsa Duong [id number] Elsa Duong Notes Date Note Type Note [...] the brain was completed without contrast in [place]. We do not have records but will [...] or concerns today. Hayley Briggs APRN DNP [employer] [address] [place] [address], [phone], [place] [facility] 12/28/2024 14:08:18 OBGyn Episode No OBEpisode recorded.
== END 2025-06-25 10:44 | disposition home or self-care (01) ==
PROVIDERS: PCP Internal Medicine
DX: R41.3 Other amnesia (principal); R90.82 White matter disease, unspecified
CPT/HCPCS: 70551

== ENCOUNTER 2025-08-11 13:40 | Outpatient (CLI) | payer MEDICARE, MEDICAID, SELFPAY ==
--- OUTSIDE RECORDS SUMMARY | 2025-08-11 14:40 | XMS_ITS | Clinical Summary ---
Author Organization [facility] Address [address] [place] [address] Phone Care Team Providers Care Supervisor [employer]oder [employer] Name Role Phone Ambrocio Núñez MD Primary Care Provider [phone] Allergies Active Allergy Reactions Criticality Noted Date [...] ulcerative, purulent, and granulomatous) Nasal turbinate hypertrophy KALR (obstructive sleep apnea) Family History Medical History [...] MEDICAID [place] MEDICARE C [employer]ET[employer] Care Teams Supervisor [employer] Relationship Specialty Start Date End Date Ambrocio Núñez MD [address] [place] [address] PCP - General Neurology 07/21/15
--- OUTSIDE RECORDS SUMMARY | 2025-08-11 14:40 | XMS_ITS | Clinical Summary ---
Author Organization [facility] Address [address] [place] [address] Care Team Providers Care Smoking Tobacco Packer Hand Name Role Phone Dwayne Núñez MD Primary Care Provider Allergies Active Allergy Reactions Criticality Noted Date [...] on file Legal Sex Female 1:14 AM NIGHT SHIFT Gender Identity Not on file Sexual Orientation Not on file Last Filed Vital Signs Vital Sign Reading Time Taken Comments Blood Pressure 128/73 02/12/2022 10:40 AM CDT Pulse 62 02/12/2022 10:40 AM CDT Temperature 36.6 C (97.9 F) 09/03/2021 4:36 PM NIGHT SHIFT Respiratory Rate 18 02/12/2022 10:40 AM CDT Oxygen Saturation 99% 02/12/2022 10:40 AM CDT Inhaled Oxygen Concentration - - Weight 82.8 kg (182 lb 9.6 oz) 02/12/2022 10:40 AM CDT Height 157.5 cm (5' 2) 02/12/2022 10:40 AM CDT Body Mass Index 33.4 02/12/2022 10:40 AM CDT Plan of Treatment Not on file Medical Devices Implanted Type Area Forensic Science Examiner Device Identifier Shelf Expiration Date Model / Serial / Lot Rt Total Knee Arthroplasty- Implanted:05/29 (Quantity not on file) Right: Knee Insurance [facility] MEDICARE Address: [facility] [address] [place] [address] [facility] MEDICARE ADVANTAGE Care Teams Smoking Tobacco Packer Hand Relationship Specialty Start Date End Date Dwayne Núñez MD PCP - General 09/03/21
--- OUTSIDE RECORDS SUMMARY | 2025-08-11 14:40 | XMS_ITS | Patient Health Record ---
Author Organization [facility] Address [address] [place], [place] [address] Care Team Providers Care Museum Informatics Specialist Name Role Phone COOPER MELTON Unavailable [phone] Dwayne Núñez Unavailable Unavailable COOPER CELIS Unavailable [phone] Allergies Allergen (clinical drug ingredient) Drug/Non Drug Allergy documented on EMR Reaction Allergy Type Onset Date Status Contrast Dye (uncoded) Unknown Allergy Active ampicillin Ampicillin Unknown Drug Allergy Activ e Latex Latex Unknown Allergy Active Reason For Referral No Information Medications Medication SIG (Take, Route, Frequency, Duration) Notes Start Date End Date Status Clotrimazole-Betamethasone 1-0.05 % Cream 1 application Externally Twice a day 04/15/2024 Active Plan Of Treatment No Information Insurance Providers Payer Name Payer Address Payer Phone Subscriber Number Group Number Insured Name Patient Relationship to Insured Coverage Start Date Coverage End Date [facility] [address] [address] [place] [address] [id number] Elsa Duong Self - patient is the insured Medical (General) History Medical History History ICD Code acid reflux artificial joint neuropathy Asthma/Bronchitis Cancer (type of cancer) Leg/Feet cramps Arthritis Bladder infections Thyroid Disease angina Back Trouble Diabetic Psychiatric Disorder hypertension
== END 2025-08-11 13:41 | disposition home or self-care (01) ==
LOC: CHSIMG 13:42
PROVIDERS: PCP Internal Medicine
DX: R41.3 Other amnesia (principal)
CPT/HCPCS: 99199